=== PATIENT | female | born 1955 | race Two or more races ===

== ENCOUNTER 2024-06-28 20:18 | Inpatient (IN) | payer MEDICARE, SELFPAY ==
[2024-06-28 20:20] VITALS: BMI 35.4
[2024-06-28 20:25] VITALS: BP 220/84; PULSE 89; RESP 32; TEMP 37.2; O2SAT 83
--- NOTE | 2024-06-28 20:28 | PC.NURSE ---
TRIAGE NURSE INFORMED CHARGE NURSE RENATO OF PT'S VITALS AND REQUESTED FOR A ROOM. CURRENTLY WAITING FOR A ROOM AT THIS TIME.
--- NOTE | 2024-06-28 20:44 | PD.EDRME ---
Rapid Medical Screening Exam RME Arrival date/time: 06/28/24 20:18 69 yo f present to ED for c/o sob for 3 days I have greeted and performed a focused initial assessment of this patient. A comprehensive ED assessment and evaluation of the patient, analysis of all test results, and completion of the medical decision making process will be conducted by additional ED providers. Chief Complaint: Shortness of Breath/Dyspnea Time Seen by Provider: 06/28/24 20:23 Vital signs: Vital Signs Temperature 99.0 F 06/28/24 20:25 Pulse Rate 89 06/28/24 20:25 Respiratory Rate 32 H 06/28/24 20:25 Blood Pressure 220/84 H 06/28/24 20:25 Pulse Oximetry (%) 83 L 06/28/24 20:25 Oxygen Delivery Method Room Air 06/28/24 20:25
--- NOTE | 2024-06-28 20:45 | EKG_ITS ---
[facility] Test Date: 2024-06-28 Pat Name: TREVIN LEONE Department: Room: - Gender: Female Psychology Associate: : 1955 Requested By: Robby Bell Order Number: [id number] Reading MD: Robby Bell Measurements Intervals [place] Rate: 80 P: 57 TX: 190 QRS: -6 QRSD: 88 T: 104 QT: 381 QTc: 440 Interpretive Statements SINUS RHYTHM POSSIBLE LEFT ATRIAL ENLARGEMENT [-0.1mV P-WAVE IN V1/V2] LOW QRS VOLTAGE IN PRECORDIAL LEADS [QRS DEFLECTION < 1.0 mV IN CHEST LEADS] NONSPECIFIC T-WAVE ABNORMALITY Compared to ECG 07/25/2023 19:43:23 Low QRS voltage now present Possible ischemia no longer present T-wave abnormality still present /store/S0/[id number]/ecg/[id number].pdf
--- NOTE | 2024-06-28 20:45 | XR_ITS ---
Examination: PA lateral chest 2 views Technique: Upright PA lateral chest 2 views Exam date and time: June 28, 2024 at 2050 hrs. Indications: Septic arthritis of breath today. Findings: Prominent CHF Moderate enlargement cardiac contour with prominent vascular congestion including central vascular engorgement Bibasilar pneumonia The osseous structures are intact Impression: Prominent CHF Superimposed bibasilar pneumonia
[2024-06-28 21:15] LABS: Base Excess -5 (-3-3); HCO3 20 mEq/L (20-26); Inspired Oxygen, FIO2 46 %; O2 Saturation 97 % (91-98); PCO2 37 mmHg (32.0-48.0); PO2 85 mmHg (83-108); pH, Arterial 7.35 (7.35-7.45)
[2024-06-28 21:16] LABS: Allen Test Performed/OK; Puncture Site Right Radial
[2024-06-28 21:20] VITALS: BP 178/88; PULSE 68; RESP 18; O2SAT 96
--- NOTE | 2024-06-28 21:24 | PD.EDSOB ---
ED SOB =RME/HPI General Chief Complaint: Shortness of Breath/Dyspnea Stated Complaint: SOB Time Seen by Provider: 06/28/24 20:23 Source: patient and family Arrival date/time: 06/28/24 20:18 Mode of arrival: ambulatory Limitations: no limitations RME / HPI RME / HPI Narrative: 06/28/24 20:18 69 yo f present to ED for c/o sob for 3 days I have greeted and performed a focused initial assessment of this patient. A comprehensive ED assessment and evaluation of the patient, analysis of all test results, and completion of the medical decision making process will be conducted by additional ED providers. DR. MARINA MAIN ED EVALUATION: 69-year-old female with a past medical history of congestive heart failure (CHF) and kidney disease presents to the Emergency Department with complaints of shortness of breath and cough with greenish brown sputum. The patient describes the symptoms as moderate in severity. Upon assessment, she is noted to be hypoxic with an oxygen saturation of 83% on room air. Associated symptoms include a fever and a productive, moist cough. The patient has not reported any recent changes in her condition, but denies chest pain, wheezing, or hemoptysis. Related Data Home Medications ?Medication ?Instructions ?Recorded ?Confirmed atorvastatin 80 mg tablet 80 mg PO QDAY 03/10/22 07/26/23 carvedilol 25 mg tablet 25 mg PO BID 03/10/22 07/26/23 doxazosin 2 mg tablet 2 mg PO QPM 04/07/23 07/26/23 clopidogrel 75 mg tablet 75 mg PO DAILY 06/28/23 07/26/23 ezetimibe 10 mg tablet 10 mg PO QPM 06/28/23 07/26/23 hydralazine 50 mg tablet 75 mg PO TID 06/28/23 07/26/23 pregabalin 75 mg capsule 75 mg PO QPM 06/28/23 07/26/23 ferrous sulfate 325 mg (65 mg 325 mg PO QDAY 07/26/23 07/26/23 iron) tablet isosorbide mononitrate 30 mg 30 mg PO DAILY 07/26/23 07/26/23 tablet,extended release 24 hr semaglutide 3 mg tablet (Rybelsus) 3 mg PO QDAY 07/26/23 07/26/23 Previous Rx's ?Medication ?Instructions ?Recorded amoxicillin 875 mg tablet 875 mg PO BID #7 tabs 07/28/23 furosemide 40 mg tablet (Lasix) 40 mg PO Q OTHER DAY 30 days #15 07/28/23 tabs albuterol sulfate 0.63 mg/3 mL 0.63 mg (3 mL) inhalation QID PRN 07/29/23 solution for nebulization shortness of breath or wheezing #75 mL albuterol sulfate 90 mcg/actuation 1 inh inhalation QID PRN shortness 07/29/23 aerosol inhaler of breath or wheezing #6.7 grams guaifenesin 100 mg/5 mL oral liquid 200 mg (10 mL) PO Q4H PRN 07/29/23 congestion #473 mL Allergies Allergy/AdvReac Type Severity Reaction Status Date / Time lisinopril Allergy Severe Difficulty Verified 06/28/24 20:22 Breathing prednisone Allergy Severe Hypertensio Verified 06/28/24 20:22 n Review of Systems Review of Systems Systems Reviewed: All systems reviewed, normal except as documented Past Medical History Past Medical History NEUROLOGIC: Positive Neurological Disorders and Cerebrovascular Accident (left side slight weakness- 11/2019); Negative Transient Ischemic Attacks (TIA) or Seizures CARDIAC: Positive Cardiac Disorders, Hypercholesterolemia, Congestive Heart Failure and Hypertension; Negative Hypotension RESPIRATORY: Positive Pneumonia (06/2023); Negative Chronic Obstructive Pulmonary Disease (COPD), Asthma or Sleep Apnea GASTROINTESTINAL: Negative Gastrointestinal Disorders, Hepatitis, Cirrhosis or Gastrointestinal Bleed GENITOURINARY: Negative Genitourinary Disorders or Renal Disease MUSCULOSKELETAL: Positive Musculoskeletal Disorders; Negative Marfan's Syndrome, Bone Cancer or Scoliosis ENT: Negative Blind or Deafness ENDOCRINE: Positive Endocrine Disorders, Diabetes Mellitus Type 2 and Hypothyroidism (not on meds); Negative Diabetes Mellitus Type 1 HEMATOLOGIC: Positive Anemia; Negative Leukemia PSYCHO/SOCIAL: Negative Recreational Drug Use OTHER HISTORY: Positive Hospitalization (qmonth for the last 4 months); Negative Down Syndrome, Developmental Delay, Falls, Blood Transfusions, Anesthesia Reactions or Vancomycin-Resistant Enterococci Surgical History SURGICAL: Positive Endocrine Surgery (thyroid nodule removed) and Section (x1); Negative Cardiac Surgery Social History SMOKING STATUS: Never smoker SECOND HAND EXPOSURE: No SUBSTANCE USE: does not use ALCOHOL: Never ED Exam Narrative Physical exam: GENERAL APPEARANCE: alert and oriented x 4, well-developed, well-nourished,not in respiratory distress, moderate pallor VITALS: All vitals were reviewed and the pulse ox is 83% on room air, which is hypoxic according to my interpretation. HEENT: Normocephalic, atraumatic; pupils equal, round, reactive to light; EOMI; mucous membranes pink, moist; oropharynx clear NECK: Supple LUNGS: CTABL; no wheezes, no rales, no rhonchi HEART: Regular rate, regular rhythm; normal S1, S2; no murmurs ABDOMEN: non distended; normal BS; soft, no tenderness, no guarding, no rebound; no masses, no organomegaly, no hernia BACK: no CVA tenderness EXTREMITIES: atraumatic; no edema NEUROLOGIC: awake; alert and oriented x4; cranial nerves II-XII grossly intact; no focal sensory or motor deficits PSYCHIATRIC: appropriate mood and affect SKIN: warm, dry, moderate pallor; no rashes General Limitations: Present no limitations Course Course Course Narrative: CXR is ordered for determining etiology of shortness of breath. Quality Measures none Orders Category Date Time Status Bedside COVID-19 Antigen Test NOW Care 06/28/24 20:45 Active Bedside Influenza A&B Antigen Test NOW Care 06/28/24 20:46 Completed COVID-19 Screening Questionnaire NOW Care 06/29/24 02:58 Active Tactical/Mobile Watch Officer STAT Care 06/28/24 20:45 Active Continuous Pulse Oximetry STAT Care 06/28/24 20:45 Completed Decision to Admit X1 Care 06/29/24 02:58 Completed EKG (ED ONLY) *Do not use* NOW Care 06/28/24 20:45 Completed In and Out Catheter X1PRN Care 06/28/24 20:45 Active Insert IV NOW Care 06/28/24 20:45 Active NPO STAT Care 06/28/24 20:45 Active Strict Intake and Output Routine Care 06/28/24 20:45 Ordered EKG (ED Only) Stat Exams 06/28/24 20:45 Draft XR chest 2V Stat Exams 06/28/24 20:45 Completed Arterial Blood Gas Stat Lab 06/28/24 21:07 Completed B-Type Natriuretic Peptide Stat Lab 06/28/24 21:42 Completed Blood Culture (Lab) Stat Lab 06/28/24 21:47 Received CBC Stat Lab 06/28/24 21:42 Completed Comprehensive Metabolic Panel Stat Lab 06/28/24 21:42 Completed LDH (Lactate Dehydrogenase) Stat Lab 06/28/24 21:42 Completed Lactate (Lactic Acid) Stat Lab 06/28/24 21:42 Completed Lipase Stat Lab 06/28/24 21:42 Completed Magnesium Stat Lab 06/28/24 21:42 Completed Partial Thromboplastin Time Stat Lab 06/28/24 21:42 Completed Phosphorous Stat Lab 06/28/24 21:42 Completed Procalcitonin Stat Lab 06/28/24 21:42 Completed Prothrombin Time with INR Stat Lab 06/28/24 21:42 Completed Troponin I Stat Lab 06/28/24 21:42 Completed Urinalysis Stat Lab 06/29/24 00:10 Completed Urine Culture Stat Lab 06/29/24 00:10 Received Azithromycin Inj [Zithromax Inj] 500 mg Med 06/29/24 02:55 Discontinued Sodium Chloride 0.9% 250 ml [Ns] 250 ml IV X1 [id number] [Rocephin] 1,000 mg Med 06/29/24 02:55 Discontinued Sodium Chloride 0.9% [Ns] 50 ml IV X1 Oxygen Delivery NOW RT 06/28/24 20:45 Active Vital Signs Vital signs: Vital Signs Temperature 99.0 F 06/28/24 20:25 Pulse Rate 89 06/28/24 20:25 Respiratory Rate 32 H 06/28/24 20:25 Blood Pressure 220/84 H 06/28/24 20:25 Pulse Oximetry (%) 83 L 06/28/24 20:25 Oxygen Delivery Method Room Air 06/28/24 20:25 Shortness of Breath / Dyspnea MDM Narrative MDM Narrative:: ICinthia am scribing for and in the presence of Dr. Marina. Patient data External records reviewed:: [facility] previous records (Reviewed last admission discharge dated 07/29/23, patient admitted for the following: Chronic kidney insufficiency.) Clinical information provided by:: patient Social determinants that could affect healthcare access:: none Patient has the following chronic illnesses:: CHF and kidney disease How is presenting disease/condition affected by chronic disease/condition?: exacerbated by Evaluation data The following diagnostics were reviewed and interpreted by me:: lab results, radiology exam(s) and EKG tracing(s) (sinus rhythm, rate 80, low QRS voltage in precordial leads, QTc 440) Lab and/or radiology exams considered but not ordered:: none Interpretation Summary: I personally reviewed the radiology data and agree with the radiologist's interpretation. Examination: PA lateral chest 2 views Technique: Upright PA lateral chest 2 views Exam date and time: June 28, 2024 at 2050 hrs. Indications: Septic arthritis of breath today. Findings: Prominent CHF Moderate enlargement cardiac contour with prominent vascular congestion including central vascular engorgement Bibasilar pneumonia The osseous structures are intact Impression: Prominent CHF Superimposed bibasilar pneumonia Dictated By: Morro Farah MD Medications / Prescriptions Medications or Prescriptions considered but not ordered:: none Medication administrations:: Medication Administration History Acetaminophen (Acetaminophen 325 Mg Tablet) 650 mg PO Q6H PRN PRN Reason: Fever >100.4 or Pain 1-10 Stop: 07/29/24 03:29 Albuterol/Ipratropium (Albuterol/Ipratropium (Duoneb) Rt Usha 3 Ml Nebu) 3 ml INH Q6HRRT MARNIE Stop: 07/29/24 06:59 Atorvastatin Calcium (Atorvastatin Calcium 20 Mg Tablet) 80 mg PO HS MARNIE Stop: 07/29/24 20:59 Bisacodyl (Bisacodyl 5 Mg Tabec) 10 mg PO QDAY PRN; Protocol PRN Reason: CONSTIPATION Stop: 07/29/24 03:29 Bumetanide (Bumetanide Inj 0.25 Mg/Ml Vial 4 Ml) 2 mg IVP DAILY MARNIE Stop: 07/29/24 04:49 Clopidogrel Bisulfate (Clopidogrel Bisulfate 75 Mg Tablet) 75 mg PO QDAY MARNIE Stop: 07/29/24 08:59 Ezetimibe (Ezetimibe 10 Mg Tablet) 10 mg PO QDAY MARNIE Stop: 07/29/24 08:59 Heparin Sodium (Porcine) (Heparin Sod Inj 5000 Unit/Ml Vial) 5,000 unit SC Q12HR MARNIE Stop: 07/13/24 08:59 Ceftriaxone Sodium/Dextrose (Rocephin/D5w 1gm Iv Premix) 50 mls @ 100 mls/hr IV QDAY@2100 MARNIE Stop: 07/06/24 20:59 Azithromycin 500 mg/ Sodium (Chloride) 250 mls @ 250 mls/hr IV QDAY MARNIE Stop: 07/03/24 03:35 Isosorbide Mononitrate (Isosorbide Er Mononitrate 30 Mg Tabcr) 30 mg PO QDAY MARNIE Stop: 07/29/24 08:59 Losartan Potassium (Losartan Potassium 25 Mg Tablet) 25 mg PO QDAY [facility] Stop: 07/29/24 08:59 Ondansetron HCl (Ondansetron Inj 2 Mg/Ml Inj 2 Ml) 4 mg IV Q6H PRN; Protocol PRN Reason: NAUSEA OR VOMITING Stop: 07/29/24 03:29 Pregabalin (Pregabalin 75 Mg Capsule) 75 mg PO QDAY [facility] Stop: 07/29/24 08:59 Discontinued Medications Bumetanide (Bumetanide 0.5 Mg Tablet) 2 mg PO Q48H [facility] Stop: 07/29/24 08:59 Bumetanide (Bumetanide 0.5 Mg Tablet) 2 mg PO DAILY [facility] Stop: 07/29/24 08:59 Carvedilol (Carvedilol 12.5 Mg Tablet) 12.5 mg PO BIDWM [facility] Stop: 07/29/24 07:59 Azithromycin 500 mg/ Sodium (Chloride) 250 mls @ 250 mls/hr IV X1 ONE Stop: 06/29/24 03:54 Last Admin: 06/29/24 04:30 Dose: 250 mls/hr Documented By: LB Ceftriaxone Sodium 1,000 mg/ (Sodium Chloride) 50 mls @ 100 mls/hr IV X1 ONE Stop: 06/29/24 03:24 Last Admin: 06/29/24 03:31 Dose: 100 mls/hr Documented By: LB Isosorbide Mononitrate (Isosorbide Er Mononitrate 30 Mg Tabcr) 60 mg PO QDAY [facility] Stop: 07/29/24 08:59 Sodium Chloride (Sodium Chloride Rt 10% 15 Ml Nebu) 5 ml INH X1 ONE Stop: 06/29/24 03:37 see above if any Consultations Consultation(s) initiated? (list below): Yes Consultation #1 (Physician, Specialty, Details): Hospitalist made aware of the patient?s HPI, PMHx, lab and/or radiology results. Treatment plan was discussed. Accepts patient for admission. Diagnosis Shortness of Breath Differential Diagnosis: congestive heart failure, community acquired pneumonia and pulmonary embolism Most likely diagnosis given after review of the tests above:: See clinical impression below Admission Indicated Admission indicated?: indicated Admission Request Was there a request for admission?: Yes Admission Attestation Admission request attestation: Discussed case with [] from Hospitalist service regarding admission. Discussed patients ED course, exam findings, labs, and radiology results. The Hospitalist [agrees,declines] to accept the patient for admission. Disposition Plan Disposition Plan: Admit Discharge Plan Plan Patient Disposition: Admit Acute Care w/in Hospital Disposition Comment: Dr. Kendall Problem List Clinical Impression: Pneumonia, Hypoxia
[2024-06-28 21:58] LABS: Lactate (Lactic Acid) 0.5 mMol/L (0.4-2.0)
[2024-06-28 22:01] LABS: Basophils % (Auto) 1 % (0-2.5); Eosinophils # (Auto) 0.2 Thou/mm3 (0.0-0.5); Eosinophils % (Auto) 2 % (0-10); Hematocrit 24.9 % (36.0-46.0); Immature Granulocytes % (Auto) 1 % (0-0); Immature Granulocytes Auto 0.11 Thou/mm3 (0.00-0.00); Lymphocytes # (Auto) 0.8 Thou/mm3 (1.0-4.8); Lymphocytes % (Auto) 9 % (10-50); Mean Corpuscular HGB Conc 32.5 g/dl (31.0-37.0); Mean Corpuscular Hemoglobin 27.6 pg (25.0-35.0); Mean Corpuscular Volume 85 fL (80-100); Monocytes # (Auto) 0.7 Thou/mm3 (0.0-0.8); Monocytes % (Auto) 8 % (0-12); Neutrophils # (Auto) 6.9 Thou/mm3 (1.8-7.7); Neutrophils % (Auto) 79 % (37-80); Nucleated Red Blood Cell % 0 /100 WBC (0); Platelet Count 193 Thou/mm3 (140-440); RDW Standard Deviation 39.6 fL (36.4-46.3); Red Blood Count 2.94 Miln/mm3 (4.00-5.20); White Blood Count 8.7 Thou/mm3 (3.6-11.0)
[2024-06-28 22:15] LABS: Hemoglobin 8.1 g/dL (12.0-16.0)
[2024-06-28 22:20] LABS: Prothrombin Time 11.2 Seconds (9.0-12.2)
[2024-06-28 22:30] LABS: Alanine Aminotransferase 10 U/L (10-49); Albumin, Serum 4.2 gm/dL (3.4-4.8); Albumin/Globulin Ratio 1.4 (1.2-2.2); Alkaline Phosphatase 61 U/L (46-116); Anion Gap 10 (7-16); Aspartate Amino Transferase 13 U/L (0-34); BUN/Creatinine Ratio 18 Ratio (12-20); Bilirubin,Total 0.3 mg/dL (0.3-1.2); Blood Urea Nitrogen 36 mg/dL (9-23); Calcium 8.7 mg/dL (8.3-10.6); Calcium (Corrected) 8.7 mg/dL (8.5-10.1); Carbon Dioxide 20.3 mMol/L (20.0-31.0); Chloride 108 mMol/L (98-107); Globulin 2.9 gm/dL (2.3-3.5); Glucose 143 mg/dL (74-106); LDH (Lactate Dehydrogenase) 255 U/L (120-246); Lipase 37 U/L (12-53); Osmolality,Calculated 285 (275-295); Phosphorous 4.6 mg/dL (2.4-5.1); Potassium 4.6 mMol/L (3.4-5.1); Procalcitonin 0.13 ng/ml (0.0-0.49); Sodium 138 mMol/L (136-145); Total Protein 7.1 gm/dL (5.7-8.2); Troponin I < 0.020 ng/mL (0.0-0.045); eGFR 26 See Note
[2024-06-28 22:34] LABS: B-Type Natriuretic Peptide 372 pg/mL (0-100)
[2024-06-28 23:00] VITALS: BP 180/90; PULSE 62; RESP 20; TEMP 37.2; O2SAT 96
[2024-06-29] VITALS (22 sets, daily range): BP systolic 146–188; BP diastolic 61–91; PULSE 63–98; RESP 16–21; TEMP 36.7–37.4; O2SAT 93–100; BMI 30.8
[2024-06-29 00:42] LABS: Collection Type, Urine Clean Catch
[2024-06-29 00:53] LABS: Bilirubin,Urine Negative (Negative); Blood,Urine Negative (Negative); Clarity,Urine Clear (Clear/Hazy); Color,Urine Colorless (Lt Yel-Yel); Glucose, Urine Negative (Negative); Ketones,Urine Negative (Negative); Leukocyte Esterase,Urine Negative (Negative); Nitrite,Urine Negative (Negative); Protein,Urine 1+ (Neg - Trace); RBC,Urine 2 /hpf (0-3); Specific Gravity,Urine 1.009 (1.001-1.035); Squamous Epithelial Cell,Urine < 1 /hpf (0-5); Urobilinogen,Urine Negative mg/dL (0.0-1.0); WBC,Urine < 1 /hpf (0-5)
--- NOTE | 2024-06-29 03:09 | PC.NURSE ---
O2 sats drop down to 88% on RA. HBS in room seeing pt. Dtr at bedside.
--- NOTE | 2024-06-29 03:58 | PD.RESHP ---
Documentation for date of: 06/29/24 HPI History of Present Illness Chief complaint: Cough, SOB x 3 days History of present illness: Patient is a 69-year-old Kazakh-speaking female with past medical history of HFpEF (50-55% 06/28/2023), CKD stage III, hypertension, DM2, CVA in 2019 without residual deficits, and hyperlipidemia who presented to the ED on 06/28/2024 with 3 days of cough and shortness of breath which worsened today, prompting ED visit. On arrival patient had O2 saturations in the low 80s therefore was placed on 6L in triage with improvement to 97%. Daughter is present at the bedside to assist with translating. She states that patient has had previous hospitalizations for pneumonia, usually occurring in the winter months. She is unsure of whether patient got a pneumovax. Patient follows with PCP Dr. Mitchell. Patient endorses productive cough with brownish sputum, fevers, and chest discomfort. She denies any nausea, vomiting, abdominal pain, diarrhea, dysuria. Denies myalgias, sore throat. Denies any recent known sick contacts or travel. ED Course: -Initial vitals were BP 220/84, HR 89, RR 32, Temp 99.0, O2 83% on room air -Labs significant for normocytic anemia which is approximately at baseline, creatinine 2.0 according to baseline, negative troponin and procalcitonin -CXR revealed bibasilar pneumonia -In the ED, patient was given ceftriaxone 1 g IV x1, azithromycin 500 mg IV x1. -Patient was admitted for acute hypoxic respiratory failure secondary to community acquired pneumonia Review of Systems Review of systems otherwise negative except what is mentioned above. Past Medical History Past Medical History Comments PMH COMMENT: Past Medical History: HFpEF (50-55% 06/28/2023), CKD stage III, hypertension, DM2, CVA in 2020 without residual deficits, and hyperlipidemia Family History: Known for history of diabetes and heart disease in multiple family members Surgical History: Social History: Denies history of smoking, denies current alcohol use, denies recreational drug use Current Medications: Bumex 2 mg every other day, isosorbide mononitrate 60 mg qday, clopidogrel 75 mg qday, atorvastatin 80 mg qday, ezetimibe 10 mg qday, pregabalin 75 mg qday, carvedilol BID, hydralazine 100 mg TID, amlodipine qday, losartan qday, Ozempic (Source: Patient medication list per daughter) Allergies: No known drug allergies Exam Vital Signs Temp Pulse Resp BP Pulse Ox O2 Del Method O2 Flow Rate 99 F 68 18 154/71 H 95 Nasal Cannula 3 06/29/24 03:00 06/29/24 03:00 06/29/24 03:00 06/29/24 03:00 06/29/24 03:00 06/29/24 03:00 06/29/24 03:00 Narrative Exam Physical Exam General: Awake and in no acute distress. Conversational and non-toxic appearing. HEENT: Normocephalic, atraumatic, mucous membranes moist. Saturating low 90s on 2L NC. Heart: Regular rate and rhythm, no murmurs. Lungs: Mild bilateral lower base crackles. Abdomen: Soft, nondistended, nontender, positive bowel sounds. ?No guarding or rebound tenderness. Neurologic: Alert and oriented x3, no gross neurological deficit, and patient able to move all 4 extremities. Extremities: No edema. Skin: No rash or ecchymoses. Results: Labs 06/29/24 05:22 06/29/24 05:22 Labs: Short CBC 06/28/24 Range/Units 21:42 WBC 8.7 (3.6-11.0) Thou/mm3 Hgb 8.1 L (12.0-16.0) g/dL Hct 24.9 L (36.0-46.0) % Plt Count 193 (140-440) Thou/mm3 BMP 06/28/24 21:42 Sodium 138 Potassium 4.6 Chloride 108 H Carbon Dioxide 20.3 BUN 36 H Creatinine 2.0 H Glucose 143 H Calcium 8.7 Cardiac Enzymes 06/28/24 Range/Units 21:42 Troponin I < 0.020 (0.0-0.045) ng/mL Liver Function 06/28/24 Range/Units 21:42 Total Bilirubin 0.3 (0.3-1.2) mg/dL AST 13 (0-34) U/L ALT 10 (10-49) U/L Alkaline Phosphatase 61 (46-116) U/L Albumin 4.2 (3.4-4.8) gm/dL Urine 01/26/25 Range/Units 00:10 Urine Color Colorless A (Lt Yel-Yel) Urine Clarity Clear (Clear/Hazy) Urine pH 6.0 (5.0-7.0) Ur Specific [place] 1.009 (1.001-1.035) Urine Protein 1+ A (Neg - Trace) Urine Glucose (UA) Negative (Negative) ABG Interpretation ABG results: 06/28/24 21:07 ABG pH 7.35 ABG pCO2 37 ABG pO2 85 ABG HCO3 20 ABG O2 Saturation 97 ABG Base Excess -5 L Quality Measures Quality Measures none Advance care planning discussed with:: patient and child Medications Home Medications and Allergies Home Medications ?Medication ?Instructions ?Recorded ?Confirmed ?Type atorvastatin 80 mg tablet 80 mg PO QDAY 03/10/22 07/26/23 History carvedilol 25 mg tablet 25 mg PO BID 03/10/22 07/26/23 History doxazosin 2 mg tablet 2 mg PO QPM 04/07/23 07/26/23 History clopidogrel 75 mg tablet 75 mg PO DAILY 06/28/23 07/26/23 History ezetimibe 10 mg tablet 10 mg PO QPM 06/28/23 07/26/23 History hydralazine 50 mg tablet 75 mg PO TID 06/28/23 07/26/23 History pregabalin 75 mg capsule 75 mg PO QPM 06/28/23 07/26/23 History ferrous sulfate 325 mg (65 mg 325 mg PO QDAY 07/26/23 07/26/23 History iron) tablet isosorbide mononitrate 30 mg 30 mg PO DAILY 07/26/23 07/26/23 History tablet,extended release 24 hr semaglutide 3 mg tablet (Rybelsus) 3 mg PO QDAY 07/26/23 07/26/23 History Allergies Allergy/AdvReac Type Severity Reaction Status Date / Time lisinopril Allergy Severe Difficulty Verified 06/28/24 20:22 Breathing prednisone Allergy Severe Hypertensio Verified 06/28/24 20:22 n Visit Medications Acetaminophen (Acetaminophen 325 Mg Tablet) 650 mg PO Q6H PRN PRN Reason: Fever >100.4 or Pain 1-10 Stop: 07/29/24 03:29 Albuterol/Ipratropium (Albuterol/Ipratropium (Duoneb) Rt Usha 3 Ml Nebu) 3 ml INH Q6HRRT MARNIE Stop: 07/29/24 06:59 Atorvastatin Calcium (Atorvastatin Calcium 20 Mg Tablet) 80 mg PO HS MARNIE Stop: 07/29/24 20:59 Bisacodyl (Bisacodyl 5 Mg Tabec) 10 mg PO QDAY PRN; Protocol PRN Reason: CONSTIPATION Stop: 07/29/24 03:29 Bumetanide (Bumetanide 0.5 Mg Tablet) 2 mg PO Q48H MARNIE Stop: 07/29/24 08:59 Clopidogrel Bisulfate (Clopidogrel Bisulfate 75 Mg Tablet) 75 mg PO QDAY MARNIE Stop: 07/29/24 08:59 Ezetimibe (Ezetimibe 10 Mg Tablet) 10 mg PO QDAY COUNT INCLUDES THE [facility] Stop: 07/29/24 08:59 Heparin Sodium (Porcine) (Heparin Sod Inj 5000 Unit/Ml Vial) 5,000 unit SC Q12HR MARNIE Stop: 07/13/24 08:59 Ceftriaxone Sodium/Dextrose (Rocephin/D5w 1gm Iv Premix) 50 mls @ 100 mls/hr IV QDAY MARNIE Stop: 07/06/24 03:34 Azithromycin 500 mg/ Sodium (Chloride) 250 mls @ 250 mls/hr IV QDAY MARNIE Stop: 07/03/24 03:35 Isosorbide Mononitrate (Isosorbide Er Mononitrate 30 Mg Tabcr) 30 mg PO QDAY COUNT INCLUDES THE [facility] Stop: 07/29/24 08:59 Ondansetron HCl (Ondansetron Inj 2 Mg/Ml Inj 2 Ml) 4 mg IV Q6H PRN; Protocol PRN Reason: NAUSEA OR VOMITING Stop: 07/29/24 03:29 Pregabalin (Pregabalin 75 Mg Capsule) 75 mg PO QDAY COUNT INCLUDES THE [facility] Stop: 07/29/24 08:59 Discontinued Medications Carvedilol (Carvedilol 12.5 Mg Tablet) 12.5 mg PO BIDWM MARNIE Stop: 07/29/24 07:59 Azithromycin 500 mg/ Sodium (Chloride) 250 mls @ 250 mls/hr IV X1 ONE Stop: 06/29/24 03:54 Ceftriaxone Sodium 1,000 mg/ (Sodium Chloride) 50 mls @ 100 mls/hr IV X1 ONE Stop: 06/29/24 03:24 Last Admin: 06/29/24 03:31 Dose: 100 mls/hr Isosorbide Mononitrate (Isosorbide Er Mononitrate 30 Mg Tabcr) 60 mg PO QDAY MARNIE Stop: 07/29/24 08:59 Sodium Chloride (Sodium Chloride Rt 10% 15 Ml Nebu) 5 ml INH X1 ONE Stop: 06/29/24 03:37 Assessment & Plan Plan 69-year-old Kazakh-speaking female with past medical history of HFpEF (50-55% 06/28/2023), CKD stage III, hypertension, DM2, CVA in 2019 without residual deficits, and hyperlipidemia who presented to the ED on 06/28/2024 with 3 days of productive cough with brown sputum and shortness of breath with associated fever, chest discomfort, found to have bilateral pneumonia and admitted for acute hypoxic respiratory failure. #Acute hypoxic respiratory failure, secondary to #Bilateral community-acquired pneumonia On initial evaluation, did not meet sepsis criteria however patient was hypoxic to 80s on room air and tachypneic, required 4L. Denies history of O2 use at home, asthma, COPD. CXR showing bilateral lower lobe infiltrate. Procal was negative. COVID, flu were negative. CURB-65 score is 3 points, severe risk group: 14.0% 30-day mortality. Consider inpatient treatment. -Started ceftriaxone 1 g IV qday -Started azithromycin 500 mg qday -DuoNebs q6h -Blood cultures pending -Sputum culture ordered -Cocci ordered -RSV ordered -Chest physiotherapy -Titrate oxygen as tolerated to maintain saturations >93% #History of hypertension BP elevated on arrival, 220/84, patient on a number of home antihypertensives. Did not receive any antihypertensive in ED but BP improved to 146/63. -In setting of acute illness will slowly resume home medications -Continue home isosorbide mononitrate 30 mg qday -Continue home losartan 25 mg qday -Continue home bumex 2 mg #History of type 2 diabetes On admission initial glucose 116. Last A1c 6.8 04/2023. Patient takes Ozempic for diabetes at home. Not on insulin. -Held home medications -Monitor glucose on chem panel -Carb consistent low diet -A1c pending #History of HFpEF (50-55% 06/28/2023) Patient does have bilateral crackles. BNP similar to prior levels. According to patient med list per daughter, she takes bumex 2 mg every other day. -Careful with fluid resuscitation -Strict intake and output -Resume home bumex #History of CVA in 2019 without residual deficit -Continue home clopidogrel 75 mg qday #History of hyperlipidemia -Continue home atorvastatin 80 mg HS -Continue home ezetimibe 10 mg qday #History of CKD III Creatinine appears at baseline. -Monitor kidney function DVT prophylaxis: Heparin 5,000 U subQ GI prophylaxis: Pantoprazole 40 mg IV daily Diet: Cardiac, carb consistent low [place]: None Lines: Peripheral IV Antibiotics: Ceftriaxone [06/29- ], azithromycin [06/29- ] CODE STATUS: FULL Reason for hospitalization: Patient plan of care was discussed with the attending physician, Dr. Kendall. Treausre Gaspar, PGY-2
[2024-06-29] MEDS: AZITHROMYCIN INJ 500 MG in SODIUM CHLORIDE 0.9% 250 ML 250 ML 250 MG IV (04:30)
[2024-06-29 05:16] LABS: Respiratory Syncytial Virus Ag Negative (Negative)
[2024-06-29 05:54] LABS: Basophils % (Auto) 0 % (0-2.5); Eosinophils # (Auto) 0.2 Thou/mm3 (0.0-0.5); Eosinophils % (Auto) 2 % (0-10); Hematocrit 24.7 % (36.0-46.0); Immature Granulocytes % (Auto) 1 % (0-0); Immature Granulocytes Auto 0.05 Thou/mm3 (0.00-0.00); Lymphocytes # (Auto) 1.1 Thou/mm3 (1.0-4.8); Lymphocytes % (Auto) 14 % (10-50); Mean Corpuscular HGB Conc 31.6 g/dl (31.0-37.0); Mean Corpuscular Hemoglobin 27.6 pg (25.0-35.0); Mean Corpuscular Volume 87 fL (80-100); Monocytes # (Auto) 0.7 Thou/mm3 (0.0-0.8); Monocytes % (Auto) 10 % (0-12); Neutrophils # (Auto) 5.5 Thou/mm3 (1.8-7.7); Neutrophils % (Auto) 73 % (37-80); Nucleated Red Blood Cell % 0 /100 WBC (0); Platelet Count 194 Thou/mm3 (140-440); RDW Standard Deviation 41.5 fL (36.4-46.3); Red Blood Count 2.83 Miln/mm3 (4.00-5.20); White Blood Count 7.5 Thou/mm3 (3.6-11.0)
[2024-06-29 05:56] LABS: Hemoglobin 7.8 g/dL (12.0-16.0)
[2024-06-29] MEDS: ALBUTEROL/IPRATROPIUM (Duoneb) RT SOL 3 ML NEBU INH ×2 (06:15→12:03)
[2024-06-29] MEDS: BUMETANIDE INJ 0.25 MG/ML VIAL 4 ML 2 MG IVP (06:21)
[2024-06-29 06:29] LABS: Anion Gap 9 (7-16); BUN/Creatinine Ratio 17 Ratio (12-20); Blood Urea Nitrogen 33 mg/dL (9-23); Calcium 8.9 mg/dL (8.3-10.6); Chloride 110 mMol/L (98-107); Glucose 116 mg/dL (74-106); Osmolality,Calculated 285 (275-295); Phosphorous 4.9 mg/dL (2.4-5.1); Potassium 4.4 mMol/L (3.4-5.1); Sodium 139 mMol/L (136-145); eGFR 26 See Note
[2024-06-29] MEDS: PREGABALIN 75 MG CAPSULE PO (09:02)
[2024-06-29] MEDS: LOSARTAN POTASSIUM 25 MG TABLET PO (09:02)
[2024-06-29] MEDS: CLOPIDOGREL BISULFATE 75 MG TABLET PO (09:03)
[2024-06-29] MEDS: EZETIMIBE 10 MG TABLET PO (10:00)
[2024-06-29] MEDS: ISOSORBIDE ER MONONITRATE 30 MG TABCR PO (10:00)
[2024-06-29] MEDS: BUMETANIDE INJ 0.25 MG/ML VIAL 10 ML 2 MG IVP (10:01)
--- NOTE | 2024-06-29 10:53 | PC.NURSE ---
plan of care discussed with patient and her daughter who is an RN at [facility]. Patient states she is feeling better and her breathing is also better.
--- NOTE | 2024-06-29 12:39 | PC.NURSE ---
MD notified patient's BP is 182/91. Awaiting orders.
[2024-06-29] MEDS: hydrALAZINE HCL 25 MG TABLET PO (12:45)
--- NOTE | 2024-06-29 12:53 | ESPR_ITS ---
Documentation for date of: 06/29/24 Subjective Subjective Interval history: Patient was seen at bedside this morning. No overnight events. Patient was saturating well this morning on room air maintaining 93% O2 saturation. Patient's daughter was at bedside and stated that she was to know if patient could be discharged today as her hypoxia had resolved. At this time was explained to her that the patient was still pending blood and sputum cultures and patient will said that she would like to remain in the hospital overnight therefore will continue to monitor the patient overnight. No other complaints at this time. Exam Vital Signs Temp Pulse Resp BP Pulse Ox O2 Del Method O2 Flow Rate 98.1 F 72 17 182/91 H 99 Nasal Cannula 2 06/29/24 09:05 06/29/24 12:45 06/29/24 12:31 06/29/24 12:45 06/29/24 12:31 06/29/24 12:31 06/29/24 12:31 Narrative Exam General: A/O x3, no acute distress, well-nourished, well-developed Eyes: PERRL, EOMI. Anicteric, vision grossly intact. Ears: No ear pain, no ear discharge, Hearing grossly intact. Nose: No nasal discharge. Mouth/Throat: Moist mucous membranes, no redness, no lesions. Neck: Neck supple, non-tender, no cervical lymphadenopathy. Lungs: Clear JOEL upper lobes and decreased breath sounds in JOEL lower lobes, No accessory muscle use. Cardio: Normal S1/S2, regular rhythm, no murmurs, no JVD or carotid bruits. Abdomen: Soft, non-tender, no palpable masses, peristalsis present, no guarding or rebound. Extremities: Symmetrical, no significant deformities, no peripheral edema , non-tender, peripheral pulses presents. Skin: No rashes, no lesions, warm to touch. Neuro: No focal neurological deficits. motor and sensory intact. Psych: Cooperative, appropriate mood and effect. Objective Labs 06/30/24 05:17 06/30/24 05:17 Labs: Laboratory Results - last 24 hr 06/28/24 06/28/24 06/29/24 21:07 21:42 00:10 WBC 8.7 RBC 2.94 L Hgb 8.1 L Hct 24.9 L MCV 85 MCH 27.6 MCHC 32.5 RDW Std Deviation 39.6 Plt Count 193 Neut % (Auto) 79 Lymph % (Auto) 9 L [place] % (Auto) 8 Eos % (Auto) 2 Baso % (Auto) 1 Neut # (Auto) 6.9 Lymph # (Auto) 0.8 L [place] # (Auto) 0.7 Eos # (Auto) 0.2 Baso # (Auto) 0.0 Immature Gran # (Auto) 0.11 H Absolute Nucleated RBC 0.00 Immature Gran % 1 H Nucleated RBC % 0 PT 11.2 INR 1.0 APTT 28.0 Puncture Site Right Radial ABG pH 7.35 ABG pCO2 37 ABG pO2 85 ABG HCO3 20 ABG O2 Saturation 97 ABG Base Excess -5 L FiO2 46 Sodium 138 Potassium 4.6 Chloride 108 H Carbon Dioxide 20.3 Anion Gap 10 BUN 36 H Creatinine 2.0 H Estim Creat Clear Calc 28.0 L eGFR 26 L BUN/Creatinine Ratio 18 Glucose 143 H Calculated Osmolality 285 Lactic Acid 0.5 Calcium 8.7 Corrected Calcium 8.7 Phosphorus 4.6 Magnesium 2.0 Total Bilirubin 0.3 AST 13 ALT 10 Alkaline Phosphatase 61 Lactate Dehydrogenase 255 H Troponin I < 0.020 B-Natriuretic Peptide 372 H Total Protein 7.1 Albumin 4.2 Globulin 2.9 Albumin/Globulin Ratio 1.4 Lipase 37 Procalcitonin 0.13 Ur Collection Type Clean Catch Urine Color Colorless A Urine Clarity Clear Urine pH 6.0 Ur Specific [place] 1.009 Urine Protein 1+ A Urine Glucose (UA) Negative Urine Ketones Negative Urine Blood Negative Urine Nitrite Negative Urine Bilirubin Negative Urine Urobilinogen (Auto) Negative Ur Leukocyte Esterase Negative Urine RBC 2 Urine WBC < 1 Ur Squamous Epith Cells < 1 Urine Bacteria None RSV Rapid 06/29/24 06/29/24 04:26 05:22 WBC 7.5 RBC 2.83 L Hgb 7.8 L Hct 24.7 L MCV 87 MCH 27.6 MCHC 31.6 RDW Std Deviation 41.5 Plt Count 194 Neut % (Auto) 73 Lymph % (Auto) 14 [place] % (Auto) 10 Eos % (Auto) 2 Baso % (Auto) 0 Neut # (Auto) 5.5 Lymph # (Auto) 1.1 [place] # (Auto) 0.7 Eos # (Auto) 0.2 Baso # (Auto) 0.0 Immature Gran # (Auto) 0.05 H Absolute Nucleated RBC 0.00 Immature Gran % 1 H Nucleated RBC % 0 PT INR APTT Puncture Site ABG pH ABG pCO2 ABG pO2 ABG HCO3 ABG O2 Saturation ABG Base Excess FiO2 Sodium 139 Potassium 4.4 Chloride 110 H Carbon Dioxide 20.0 Anion Gap 9 BUN 33 H Creatinine 2.0 H Estim Creat Clear Calc 28.0 L eGFR 26 L BUN/Creatinine Ratio 17 Glucose 116 H Calculated Osmolality 285 Lactic Acid Calcium 8.9 Corrected Calcium Phosphorus 4.9 Magnesium 2.0 Total Bilirubin AST ALT Alkaline Phosphatase Lactate Dehydrogenase Troponin I B-Natriuretic Peptide Total Protein Albumin Globulin Albumin/Globulin Ratio Lipase Procalcitonin Ur Collection Type Urine Color Urine Clarity Urine pH Ur Specific [place] Urine Protein Urine Glucose (UA) Urine Ketones Urine Blood Urine Nitrite Urine Bilirubin Urine Urobilinogen (Auto) Ur Leukocyte Esterase Urine RBC Urine WBC Ur Squamous Epith Cells Urine Bacteria RSV Rapid Negative ABG Interpretation ABG results: 06/28/24 21:07 ABG pH 7.35 ABG pCO2 37 ABG pO2 85 ABG HCO3 20 ABG O2 Saturation 97 ABG Base Excess -5 L Quality Measures Quality Measures none Advance care planning discussed with:: patient and child Assessment & Plan Assessment Current Active Medications: Generic Name Dose Route Start Last Admin Trade Name Freq PRN Reason Stop Dose Admin Acetaminophen 650 mg 06/29/24 03:30 Acetaminophen 325 Mg Tablet PO 07/29/24 03:29 Q6H PRN Fever >100.4 or Pain 1-10 Albuterol/Ipratropium 3 ml 06/29/24 07:00 06/29/24 12:03 Albuterol/Ipratropium (Duoneb) Rt Usha 3 Ml Nebu INH 07/29/24 06:59 3 ml Q6HRRT MARNIE Administration Atorvastatin Calcium 80 mg 06/29/24 21:00 Atorvastatin Calcium 20 Mg Tablet PO 07/29/24 20:59 HS MARNIE Bisacodyl 10 mg 06/29/24 03:30 Bisacodyl 5 Mg Tabec PO 07/29/24 03:29 QDAY PRN CONSTIPATION Protocol Bumetanide 2 mg 06/30/24 09:00 Bumetanide Inj 0.25 Mg/Ml Vial 4 Ml IVP 07/29/24 04:49 DAILY MARNIE Clopidogrel Bisulfate 75 mg 06/29/24 09:00 06/29/24 09:03 Clopidogrel Bisulfate 75 Mg Tablet PO 07/29/24 08:59 75 mg QDAY MARNIE Administration Ezetimibe 10 mg 06/29/24 09:00 06/29/24 10:00 Ezetimibe 10 Mg Tablet PO 07/29/24 08:59 10 mg QDAY MARNIE Administration Heparin Sodium (Porcine) 5,000 unit 06/29/24 09:00 06/29/24 08:49 Heparin Sod Inj 5000 Unit/Ml Vial SC 07/13/24 08:59 Not Given Q12HR MARNIE Ceftriaxone Sodium/Dextrose 50 mls @ 100 mls/hr 06/29/24 21:00 Rocephin/D5w 1gm Iv Premix IV 07/06/24 20:59 QDAY@2100 MARNIE Azithromycin 500 mg/ Sodium 250 mls @ 250 mls/hr 06/30/24 09:00 Chloride IV 07/03/24 03:35 QDAY MARNIE Isosorbide Mononitrate 30 mg 06/29/24 09:00 06/29/24 10:00 Isosorbide Er Mononitrate 30 Mg Tabcr PO 07/29/24 08:59 30 mg QDAY MARNIE Administration Losartan Potassium 25 mg 06/29/24 09:00 06/29/24 09:02 Losartan Potassium 25 Mg Tablet PO 07/29/24 08:59 25 mg QDAY MARNIE Administration Ondansetron HCl 4 mg 06/29/24 03:30 Ondansetron Inj 2 Mg/Ml Inj 2 Ml IV 07/29/24 03:29 Q6H PRN NAUSEA OR VOMITING Protocol Pregabalin 75 mg 06/29/24 09:00 06/29/24 09:02 Pregabalin 75 Mg Capsule PO 07/29/24 08:59 75 mg QDAY MARNIE Administration Plan 69-year-old female with past medical history of HFpEF (50 to 55% EF in 06/2023), CKD stage III, hypertension, DM2, hyperlipidemia and CVA with no residual deficits was admitted to the hospital on 06/29/2024 due to acute hypoxic respiratory failure secondary to community-acquired pneumonia. #Hypoxia respiratory failure likely secondary to #Community-acquired pneumonia ? Patient came in with complaints of shortness of breath or cough ? Patient was hypoxic on admission ?Patient's chest x-ray showed bilateral pneumonia Plan: ? Continue with ceftriaxone and azithromycin [06/29/2024?] ? DuoNebs every 6 ? Blood and sputum cultures pending ? Cocci pending ? Continue O2 requirement as needed ? Will continue to monitor #Hx of hypertension ?Initially patient came in with 220/84 and improved without any antihypertensive medications 146/63 ? Will continue patient's Bumex 2 mg daily and losartan 25 mg daily ? Hydralazine 25 p.o. x 1 given today #HFpEF (50 to 55% 06/2023) ?Patient does not appear to be in any heart failure exacerbation at this time Plan: ? Strict MATTHEW's ? Bumex 2 mg daily ? Low-sodium diet ? Will continue to monitor #Hx of CKD stage III ? Patient's creatinine currently at 2, most likely is patient's baseline Plan: ? Avoid nephrotoxic agents ? Renally dose medication ? Will continue to monitor #Hx of DM2 ? A1c 6.8 Plan: ? ISS ? Accu-Cheks and hypoglycemic critical ordered ? Will continue monitor #Hx of CVA #Hx of hyperlipidemia ? Continue clopidogrel 75 mg daily ? Continue atorvastatin and ezetimibe Disposition: Patient admitted to med/tele continue Abx for PNA. Diet: Cardiac GI prophylaxis: not indicated DVT prophylaxis: Heparin sc Code: Full Case disclosed with Attending Dr. Joe Goncalves PGY1 Attending Provider Attestation/Addendum I reviewed labs, imaging, EKG, home medications and prior available records. Face to face evaluation was performed by me. I have personally examined the patient and discussed assessment and plan with the IM team. I reviewed the resident note and agree with the plan with exceptions as below. Acute hypoxic respiratory failure Community-acquired pneumonia Chronic CHF Continue oxygen as needed Continue ceftriaxone/azithromycin Follow-up cocci IgM Continue Bumex
[2024-06-29 14:46] LABS: Cocci Serology, IgM Negative (Negative)
[2024-06-29] MEDS: cefTRIAXone/D5w 1gm IV premix 50 ML IV (20:07)
[2024-06-29] MEDS: ATORVASTATIN CALCIUM 20 MG TABLET 80 MG PO (20:07)
[2024-06-29] MEDS: INSULIN LISPRO (AdmeLOG) 1 UNIT/0.01 ML UNIT SC (22:07)
[2024-06-30] VITALS (9 sets, daily range): BP systolic 149–159; BP diastolic 70–78; PULSE 66–79; RESP 15–19; TEMP 36.9–37.5; O2SAT 94–100
[2024-06-30] MEDS: ALBUTEROL/IPRATROPIUM (Duoneb) RT SOL 3 ML NEBU INH ×2 (01:15→06:37)
[2024-06-30 06:09] LABS: Basophils % (Auto) 0 % (0-2.5); Eosinophils # (Auto) 0.2 Thou/mm3 (0.0-0.5); Eosinophils % (Auto) 2 % (0-10); Hematocrit 27.3 % (36.0-46.0); Hemoglobin 8.9 g/dL (12.0-16.0); Immature Granulocytes % (Auto) 1 % (0-0); Immature Granulocytes Auto 0.04 Thou/mm3 (0.00-0.00); Lymphocytes # (Auto) 1.3 Thou/mm3 (1.0-4.8); Lymphocytes % (Auto) 16 % (10-50); Mean Corpuscular HGB Conc 32.6 g/dl (31.0-37.0); Mean Corpuscular Hemoglobin 28.1 pg (25.0-35.0); Mean Corpuscular Volume 86 fL (80-100); Monocytes # (Auto) 0.8 Thou/mm3 (0.0-0.8); Monocytes % (Auto) 10 % (0-12); Neutrophils # (Auto) 5.5 Thou/mm3 (1.8-7.7); Neutrophils % (Auto) 71 % (37-80); Nucleated Red Blood Cell % 0 /100 WBC (0); Platelet Count 214 Thou/mm3 (140-440); RDW Standard Deviation 40.3 fL (36.4-46.3); Red Blood Count 3.17 Miln/mm3 (4.00-5.20); White Blood Count 7.8 Thou/mm3 (3.6-11.0)
[2024-06-30 06:34] LABS: Anion Gap 10 (7-16); BUN/Creatinine Ratio 18 Ratio (12-20); Blood Urea Nitrogen 37 mg/dL (9-23); Calcium 9.3 mg/dL (8.3-10.6); Carbon Dioxide 23.5 mMol/L (20.0-31.0); Chloride 107 mMol/L (98-107); Creatinine (Component) 2.1 mg/dL (0.6-1.3); Estimated Creatinine Clearance 24.8 mL/min (>60); Glucose 114 mg/dL (74-106); Osmolality,Calculated 289 (275-295); Potassium 4.8 mMol/L (3.4-5.1); Sodium 140 mMol/L (136-145); eGFR 25 See Note
[2024-06-30] MEDS: ACETAMINOPHEN 325 MG TABLET 650 MG PO (07:46)
[2024-06-30] MEDS: LOSARTAN POTASSIUM 25 MG TABLET PO (09:29)
[2024-06-30] MEDS: PREGABALIN 75 MG CAPSULE PO (09:29)
[2024-06-30] MEDS: BUMETANIDE INJ 0.25 MG/ML VIAL 4 ML 2 MG IVP (09:29)
[2024-06-30] MEDS: AZITHROMYCIN 250 MG TABLET 500 MG PO (09:29)
[2024-06-30] MEDS: EZETIMIBE 10 MG TABLET PO (09:29)
[2024-06-30] MEDS: ISOSORBIDE ER MONONITRATE 30 MG TABCR PO (09:30)
[2024-06-30] MEDS: CLOPIDOGREL BISULFATE 75 MG TABLET PO (09:30)
[2024-06-30] MEDS: carVEDILOL 12.5 MG TABLET 25 MG PO (10:02)
--- NOTE | 2024-06-30 10:57 | ESDS_ITS ---
Planned Discharge Date 06/30/24 DS: Providers Provider Date of admission: 06/29/24 03:30 Primary care physician: Karishma Mitchell MD Admitting Provider: Hardik Kendall DO Attending Provider on Admission: Tejinder Diaz MD Attending Provider on DC: Tejinder Diaz MD Discharging Provider: Tejinder Diaz MD DS: Diagnosis Problem List Completed Was Problem List Reviewed/Reconciled?: Yes Hospital Course Hospital Course Hospital course: 69-year-old female with past medical history of HFpEF (50 to 55% EF in 06/2023), CKD stage III, hypertension, DM2, hyperlipidemia and CVA with no residual deficits was admitted to the hospital on 06/29/2024 due to acute hypoxic respiratory failure secondary to community-acquired pneumonia. In the ED patient came in with complaints of shortness of breath and initially patient was hypoxic, hypotensive, tachypneic, and afebrile. Initial labs were relevant for low hemoglobin (8.1), azotemia (BUN 26 and creatinine 2), elevated LDH (255), and elevated BNP (372). Initial imaging included chest x-ray which showed bibasilar pneumonia. Patient was treated with IV antibiotics Rocephin and pneumonia. She was also given breathing treatments as needed as well as diuretics daily. Patient's blood culture were negative in the first 24 hours. She improved significantly hypoxia and was saturating well on only 2 L of O2 the same day of admission. At the time of discharge she was stable enough to be discharged home. Disposition: Please follow-up with primary care physician in 1 week after discharge Please follow-up with combined rail operator and spinning frame cleaner in 1 to 2 weeks after discharge. You have been started on azithromycin for 1 more day and amoxicillin for 3 more days Please come back to the ER if symptoms persist or worsen Problem List: #Acute hypoxic respiratory failure likely secondary to #Community-acquired pneumonia #Hx of hypertension #HFpEF (50 to 55% 06/2023) #Hx of CKD stage III #Hx of DM2 #Hx of CVA #Hx of hyperlipidemia Case disclosed with Attending Dr. Joe Goncalves PGY1 Status at Discharge Overall status at discharge: patient is not back to baseline Time Spent with Patient Time attestation: Total time spent providing and/or coordinating discharge services:>35 min Exam Vital Signs Temp Pulse Resp BP Pulse Ox O2 Del Method O2 Flow Rate 99.5 F 66 15 159/73 H 96 Nasal Cannula 2 06/30/24 08:00 06/30/24 10:02 06/30/24 08:00 06/30/24 10:02 06/30/24 08:00 06/30/24 08:00 06/30/24 08:00 Narrative Exam General: A/O x3, no acute distress, well-nourished, well-developed Eyes: PERRL, EOMI. Anicteric, vision grossly intact. Ears: No ear pain, no ear discharge, Hearing grossly intact. Nose: No nasal discharge. Mouth/Throat: Moist mucous membranes, no redness, no lesions. Neck: Neck supple, non-tender, no cervical lymphadenopathy. Lungs: Clear JOEL, No accessory muscle use. Cardio: Normal S1/S2, regular rhythm, no murmurs, no JVD or carotid bruits. Abdomen: Soft, non-tender, no palpable masses, peristalsis present, no guarding or rebound. Extremities: Symmetrical, no significant deformities, no peripheral edema , non-tender, peripheral pulses presents. Skin: No rashes, no lesions, warm to touch. Neuro: No focal neurological deficits. motor and sensory intact. Psych: Cooperative, appropriate mood and effect. Discharge Plan Plan Patient Disposition: HOME (Self Care) Patient condition on transfer: Stable Care Plan Goals: Please follow-up with primary care physician in 1 week after discharge Please follow-up with combined rail operator and spinning frame cleaner in 1 to 2 weeks after discharge. You have been started on azithromycin for 1 more day and amoxicillin for 3 more days Please come back to the ER if symptoms persist or worsen Prescriptions/Referrals Prescriptions/Med Rec: Continued clopidogrel 75 mg Tablet 75 mg PO DAILY ezetimibe 10 mg Tablet 10 mg PO QPM hydralazine 50 mg Tablet 100 mg PO TID pregabalin 75 mg Capsule 75 mg PO QPM amoxicillin 875 mg tablet 875 mg PO BID 3 Days Qty: 6 0RF atorvastatin 80 mg tablet 80 mg PO QDAY Patient Comments: TAKE 1 TABLET BY MOUTH EVERY DAY Rx Instructions: takes in the afternoon carvedilol 25 mg tablet 25 mg PO BID Patient Comments: TAKE 1 TABLET BY MOUTH TWICE A DA doxazosin 2 mg Tablet 2 mg PO QPM Rybelsus 3 mg Tablet 3 mg PO QDAY isosorbide mononitrate 30 mg tablet extended release 24 hr 60 mg PO DAILY ferrous sulfate 325 mg (65 mg iron) Tablet 325 mg PO QDAY furosemide [Lasix] 40 mg tablet 40 mg PO Q OTHER DAY 30 Days Qty: 15 1RF guaifenesin 100 mg/5 mL liquid 200 mg PO Q4H PRN (Reason: congestion) Qty: 473 0RF albuterol sulfate 90 mcg/actuation HFA aerosol inhaler 1 inh inhalation QID PRN (Reason: shortness of breath or wheezing) Qty: 6.7 0RF albuterol sulfate 0.63 mg/3 mL solution for nebulization 0.63 mg inhalation QID PRN (Reason: shortness of breath or wheezing) Qty: 75 0RF Referrals: Karishma Mitchell MD [Primary Care Provider] - Patient/Caregiver Discharge Instructions Discharge Activity: activity as tolerated Other Discharge Activity Instructions:: Please follow-up with primary care physician in 1 week after discharge Please follow-up with combined rail operator and spinning frame cleaner in 1 to 2 weeks after discharge. You have been started on azithromycin for 1 more day and amoxicillin for 3 more days Please come back to the ER if symptoms persist or worsen Education Materials: Preventing Pneumonia, Treating Pneumonia, Preventing Common Respiratory ... Print Language: Korean Stand Alone Forms: Barbra Award Info., Patient Portal Info Letter Discharge Order Discharge Orders: Discharge (Routine); Ordered 06/30/24 Ordered By: Mario Peter Quality Discharge Quality Measures VTE prophylaxis Attestestation Attestation I reviewed labs, imaging, EKG, home medications and prior available records. Face to face evaluation was performed by me. I have personally examined the patient and discussed assessment and plan with the IM team. I reviewed the resident note and agree with the plan with exceptions as below. Acute hypoxic respiratory failure Community-acquired pneumonia Chronic CHF Essential hypertension She is on room air Will discharge on Augmentin and azithromycin Follow-up cocci IgM: Negative Continue home diuretic Continue home BP medications Time spent is 40 minutes. More than 50% of the time was spent on patient education and coordination of care.
[2024-06-30 14:38] LABS: Cocci Serology, IgG Negative (Negative)
== END 2024-06-30 12:07 | disposition home or self-care (01) | DRG 193 ==
LOC: SERX 06-29 02:57 → SERHOLD 06-29 04:02 → S3NX 06-29 19:02
PROVIDERS: Physician Assistant; Student in an Organized Health Care Education/Training Program; Admitting Provider Student in an Organized Health Care Education/Training Program; Emergency Provider Emergency Medicine; PCP Family Medicine; Visit Provider Student in an Organized Health Care Education/Training Program
DX: J18.9 Pneumonia, unspecified organism (principal); J96.01 Acute respiratory failure with hypoxia; I13.0 Hypertensive heart and chronic kidney disease with heart failure and stage 1 through stage 4 chronic kidney disease, or unspecified chronic kidney disease; I50.32 Chronic diastolic (congestive) heart failure; N18.30 Chronic kidney disease, stage 3 unspecified; Z79.02 Long term (current) use of antithrombotics/antiplatelets; Z79.899 Other long term (current) drug therapy; Z86.73 Personal history of transient ischemic attack (TIA), and cerebral infarction without residual deficits; E11.22 Type 2 diabetes mellitus with diabetic chronic kidney disease; E78.5 Hyperlipidemia, unspecified
CPT/HCPCS: 36415; 36600; 71046; 80048; 80053; 81001; 82803; 83605; 83615; 83690; 83735; 83880; 84100; 84145; 84484; 85025; 85610; 85730; 86331; 86635; 87040; 87077; 87086; 87186; 87205; 87400; 87634; 87811; 93225; 94640; 94667; A9270; J0456; J0696; J1815; J3490; J7050

== ENCOUNTER 2024-08-18 08:01 | Inpatient (IN) | payer MEDICARE, SELFPAY ==
[2024-08-18] VITALS (13 sets, daily range): BP systolic 153–205; BP diastolic 70–99; PULSE 72–92; RESP 16–22; TEMP 36.6–37.1; O2SAT 91–99; BMI 37.8
--- NOTE | 2024-08-18 08:17 | EKG_ITS ---
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
--- NOTE | 2024-08-18 08:17 | XR_ITS ---
Examination: PA lateral chest 2 views TECHNIQUE: Upright PA lateral chest 2 views Exam date and time: August 18, 2024 0839 hours Comparison April 28, 2025 INDICATIONS: SOB beginning 2 days ago. FINDINGS: Mild to moderate CHF Mild enlargement cardiac contour Prominent vascular congestion including central vascular engorgement with perihilar edema Consider superimposed right perihilar pneumonia IMPRESSION: Mild to moderate CHF Consider superimposed right perihilar pneumonia
--- NOTE | 2024-08-18 08:18 | EDRME_ITS ---
Rapid Medical Screening Exam [facility] Arrival date/time: 08/18/24 08:01 69-year-old female with a history of CHF, hypertension, hyperlipidemia, acute kidney injury, presents to the emergency room with a chief complaint of shortness of breath, coughing up phlegm, and generalized fatigue x 3 days. Patient states she was also drinking tea this morning and dropped around her chest. Patient has a fluid-filled blister on her left breast. I have greeted and performed a focused initial assessment of this patient. A com prehensive ED assessment and evaluation of the patient, analysis of all test results, and completion of the medical decision making process will be conducted by additional ED providers. Chief Complaint: Shortness of Breath/Dyspnea Vital signs: Vital Signs Temperature 97.9 F 08/18/24 08:13 Pulse Rate 72 08/18/24 08:13 Respiratory Rate 16 08/18/24 08:13 Blood Pressure 185/91 H 08/18/24 08:13 Pulse Oximetry (%) 92 L 08/18/24 08:13 Oxygen Delivery Method Room Air 08/18/24 08:13 Vital signs reviewed by provider: Yes
--- NOTE | 2024-08-18 09:02 | PD.EDSOB ---
ED SOB =RME/HPI General Chief Complaint: Shortness of Breath/Dyspnea Stated Complaint: DYSPNEA (92%) SINCE LAST NIGHT, BURN TO CHEST Time Seen by Provider: 08/18/24 08:34 Arrival date/time: 08/18/24 08:01 RME / HPI RME / HPI Narrative: 08/18/24 08:01 69-year-old female with a history of CHF, hypertension, hyperlipidemia, acute kidney injury, presents to the emergency room with a chief complaint of shortness of breath, coughing up phlegm, and generalized fatigue x 3 days. Patient states she was also drinking tea this morning and dropped around her chest. Patient has a fluid-filled blister on her left breast. I have greeted and performed a focused initial assessment of this patient. A comprehensive ED assessment and evaluation of the patient, analysis of all test results, and completion of the medical decision making process will be conducted by additional ED providers. DR. SAHU MAIN ED EVALUATION 69 year old female with history of CVA, HFpEF 50-55% 06/2023, CKD, hypertension, hyperlipidemia, diabetes presents to the ED for evaluation of shortness of breath beginning last night. Described feeling her lungs are congested and unable to get a good breath in. Accompanied by a productive cough, dizziness, and feeling fatigued. Patient additionally reported accidentally spilling hot water on her left breast last night and noted it blistering this morning. No other associated symptoms or complaints reported. Denies fevers, chills, chest pain, abdominal pain, n/v/d, or urinary symptoms. Related Data Home Medications ?Medication ?Instructions ?Recorded ?Confirmed atorvastatin 80 mg tablet 80 mg PO QDAY 03/10/22 06/29/24 carvedilol 25 mg tablet 25 mg PO BID 03/10/22 06/29/24 doxazosin 2 mg tablet 2 mg PO QPM 04/07/23 07/26/23 clopidogrel 75 mg tablet 75 mg PO DAILY 06/28/23 06/29/24 ezetimibe 10 mg tablet 10 mg PO QPM 06/28/23 06/29/24 hydralazine 50 mg tablet 100 mg PO TID 06/28/23 06/29/24 pregabalin 75 mg capsule 75 mg PO QPM 06/28/23 06/29/24 ferrous sulfate 325 mg (65 mg 325 mg PO QDAY 07/26/23 07/26/23 iron) tablet isosorbide mononitrate 30 mg 60 mg PO DAILY 07/26/23 06/29/24 tablet,extended release 24 hr semaglutide 3 mg tablet (Rybelsus) 3 mg PO QDAY 07/26/23 07/26/23 Previous Rx's ?Medication ?Instructions ?Recorded furosemide 40 mg tablet (Lasix) 40 mg PO Q OTHER DAY 30 days #15 07/28/23 tabs albuterol sulfate 0.63 mg/3 mL 0.63 mg (3 mL) inhalation QID PRN 07/29/23 solution for nebulization shortness of breath or wheezing #75 mL albuterol sulfate 90 mcg/actuation 1 inh inhalation QID PRN shortness 07/29/23 aerosol inhaler of breath or wheezing #6.7 grams guaifenesin 100 mg/5 mL oral liquid 200 mg (10 mL) PO Q4H PRN 07/29/23 congestion #473 mL amoxicillin 875 mg tablet 875 mg PO BID 3 days #6 tabs 06/30/24 Allergies Allergy/AdvReac Type Severity Reaction Status Date / Time lisinopril Allergy Severe Difficulty Verified 08/18/24 08:06 Breathing prednisone Allergy Severe Hypertensio Verified 08/18/24 08:06 n Review of Systems Review of Systems Narrative Review of Systems: Gen: No fever, no chills, no weight loss EYES: No discharge, no visual changes, no pain HEENT: No ear pain, no congestion, no sore throat PULM: + shortness of breath, +cough CV: No chest pain, no palpitations GI: No nausea, no vomiting, no diarrhea, no pain, no constipation : No frequency, no urgency,? no dysuria Musc/skel: No joint pain, no back pain Skin: +burn on left breast. No rash. Neuro: No weakness, no headache Past Medical History Past Medical History NEUROLOGIC: Positive Neurological Disorders and Cerebrovascular Accident CARDIAC: Positive Cardiac Disorders, Hypercholesterolemia, Congestive Heart Failure, Edema (To the bilateral lower extremities) and Hypertension RESPIRATORY: Positive Pneumonia GENITOURINARY: Positive Renal Disease (Stage 4) MUSCULOSKELETAL: Positive Musculoskeletal Disorders (Neuropathy) ENDOCRINE: Positive Endocrine Disorders, Diabetes Mellitus Type 2 and Hypothyroidism (Per daughter this has self corrected and she no longer needs meds for this.) HEMATOLOGIC: Positive Anemia OTHER HISTORY: Positive Hospitalization Surgical History SURGICAL: Positive Endocrine Surgery and Section; Negative Cardiac Surgery Social History SMOKING STATUS: Never smoker SECOND HAND EXPOSURE: No SUBSTANCE USE: does not use ED Exam Narrative Physical exam: GENERAL: In general the patient is awake, interactive, in an emergency department gurney, appears fatigued, ? HEAD/EYES/EARS/NOSE/THROAT: normo-cephalic, atraumatic, mucus membranes are moist.? No cervical tenderness palpation midline.? Supple neck. CARDIOVASCULAR: regular rate and regular rhythm, no murmurs, heart sounds are not distant, strong pulses in all four extremities that are equal and symmetric bilateral upper and lower extremities, normal capillary refill. CHEST/PULMONARY: normal chest rise and fall, good air movement, rhonchi L>R, normal inspiratory to expiratory ratios without evidence of respiratory distress. ABDOMEN: soft, large, no fluid wave, not tender, no masses appreciated, there is a well healed midline surgical scar BACK: normal range of motion without pain. NEUROLOGICAL: cranio-facial features are symmetric, moves all four extremities equally without obvious limitations or weakness. EXTREMITY: no tenderness to palpation over the long bones or large joints of the bilateral upper and lower extremities, no joint swelling, no joint erythema, no signs of trauma, +1 edema to BLE. SKIN: warm, dry, well-perfused, no jaundice, no rash, no telangiectasias or petechia. There is a 1cm x 1cm 2nd degree superficial burn that without blistering on the left upper abdomen and a 2cm x 1cm 2nd degree superficial burn to the left breast PSYCH: calm, cooperative, no evidence of psychosis or agitation Course Course Course Narrative: chest xray ordered to help determine etiology of shortness of breath. Quality Measures none Orders Category Date Time Status COVID-19 Screening Questionnaire NOW Care 08/18/24 10:30 Active Decision to Admit X1 Care 08/18/24 10:29 Completed EKG (ED ONLY) *Do not use* NOW Care 08/18/24 08:17 Completed EKG (ED Only) Stat Exams 08/18/24 08:17 Draft XR chest 2V Stat Exams 08/18/24 08:17 Completed B-Type Natriuretic Peptide Stat Lab 08/18/24 09:17 Completed CBC Stat Lab 08/18/24 09:17 Completed Comprehensive Metabolic Panel Stat Lab 08/18/24 09:17 Completed Magnesium Stat Lab 08/18/24 09:17 Completed Partial Thromboplastin Time Stat Lab 08/18/24 09:17 Completed Prothrombin Time with INR Stat Lab 08/18/24 09:17 Completed Troponin I Stat Lab 08/18/24 09:17 Completed Urinalysis Stat Lab 08/18/24 08:58 Completed Albuterol/Ipratr Rt Usha [Duoneb Rt Usha] Med 08/18/24 08:34 Discontinued 3 ml INH X1 ONE Metoprolol Tartrate Inj [Lopressor Inj] Med 08/18/24 10:24 Discontinued 5 mg IVP X1 ONE Nitroglycerin Oint 2% [Nitro-paste Oint 2%] Med 08/18/24 10:23 Discontinued 1 inch TOP X1 ONE Vital Signs Vital signs: Vital Signs Temperature 97.9 F 08/18/24 08:13 Pulse Rate 72 08/18/24 08:13 Respiratory Rate 16 08/18/24 08:13 Blood Pressure 185/91 H 08/18/24 08:13 Pulse Oximetry (%) 92 L 08/18/24 08:13 Oxygen Delivery Method Room Air 08/18/24 08:13 Pulse ox is 92% on room air which is low. Shortness of Breath / Dyspnea MDM Narrative MDM Narrative:: IFrancesca, alaina scribing for and in the presence of Dr. Sahu. Patient data External records reviewed:: [facility] previous records (I reviewed admission from 06/28/2024 through 06/30/2024 for hypoxia ) Clinical information provided by:: patient and family (daughter helped translate ) Social determinants that could affect healthcare access:: none Patient has the following chronic illnesses:: CVA, HFpEF 50-55% 06/2023, CKD, hypertension, hyperlipidemia, diabetes How is presenting disease/condition affected by chronic disease/condition?: exacerbated by Evaluation data The following diagnostics were reviewed and interpreted by me:: lab results, radiology exam(s) and EKG tracing(s) (sinus rhythm, rate 70, MO interval is normal, nonspecific ST and T-wave changes in lead I and aVL, no other acute changes, no ST depressions, no STEMI, QTc normal ) Lab and/or radiology exams considered but not ordered:: None Interpretation Summary: Ordering Physician: Ezequiel Motta Date of Service: 08/18/24 Procedure(s): XR chest 2V Accession Number(s): [id number] cc: Ezequiel Motta; Morro Farah MD~ Examination: PA lateral chest 2 views TECHNIQUE: Upright PA lateral chest 2 views Exam date and time: August 18, 2024 0839 hours Comparison April 28, 2025 INDICATIONS: SOB beginning 2 days ago. FINDINGS: Mild to moderate CHF Mild enlargement cardiac contour Prominent vascular congestion including central vascular engorgement with perihilar edema Consider superimposed right perihilar pneumonia IMPRESSION: Mild to moderate CHF Consider superimposed right perihilar pneumonia Dictated By: Morro Farah MD Signed By: <Electronically signed by Morro Farah MD in OV>08/18/24 0977 Medications / Prescriptions Medications or Prescriptions considered but not ordered:: None Medication administrations:: Medication Administration History Furosemide (Furosemide Inj 10 Mg/Ml 4ml Vial) 40 mg IVP BIDD MARNIE Stop: 09/17/24 17:59 Discontinued Medications Albuterol/Ipratropium (Albuterol/Ipratropium (Duoneb) Rt Usha 3 Ml Nebu) 3 ml INH X1 ONE Stop: 08/18/24 08:35 Last Admin: 08/18/24 09:03 Dose: 3 ml Documented By: MR Furosemide (Furosemide Inj 10 Mg/Ml 4ml Vial) 40 mg IVP X1 ONE Stop: 08/18/24 11:37 Hydralazine HCl (Hydralazine Inj 20 Mg/Ml Vial) 10 mg IV X1 ONE Stop: 08/18/24 11:37 Metoprolol Tartrate (Metoprolol Tartrate Inj 1 Mg/Ml Amp 5 Ml) 5 mg IVP X1 ONE Stop: 08/18/24 10:25 Last Admin: 08/18/24 10:36 Dose: 5 mg Documented By: OSCAR Nitroglycerin (Nitroglycerin Oint 2% 1 Inch Packet) 1 inch TOP X1 ONE Stop: 08/18/24 10:24 Last Admin: 08/18/24 10:35 Dose: 1 inch Documented By: OSCAR See above Consultations Consultation(s) initiated? (list below): Yes Consultation #1 (Physician, Specialty, Details): I spoke with hospitalist Dr. Diaz. Made aware of plan to admit and will notify the next team for admission. Consultation #2 (Physician, Specialty, Details): I spoke with resident Dr. Torrez working with Dr. Kendall. Discussed patients PMHx, HPI, ED course, exam findings, labs, and radiology results. The hospitalist will come evaluate the patient in the ED. Diagnosis Shortness of Breath Differential Diagnosis: acute exacerbation of chronic obstructive airways disease, congestive heart failure, community acquired pneumonia, asthma with exacerbation, pulmonary embolism and other (Viral illness) Most likely diagnosis given after review of the tests above:: CHF Acute renal failure Exertional dyspnea Admission Indicated Admission indicated?: indicated Admission Request Was there a request for admission?: Yes Admission Attestation Admission request attestation: Discussed case with [] from Hospitalist service regarding admission. Discussed patients ED course, exam findings, labs, and radiology results. The Hospitalist [agrees,declines] to accept the patient for admission. Disposition Plan Disposition Plan: Admit Discharge Plan Plan Patient Disposition: Admit Acute Care w/in Hospital Problem List Clinical Impression: Acute CHF, Acute renal failure, Exertional dyspnea
[2024-08-18] MEDS: ALBUTEROL/IPRATROPIUM (Duoneb) RT SOL 3 ML NEBU INH (09:03)
[2024-08-18 09:20] LABS: Collection Type, Urine Clean Catch
[2024-08-18 09:38] LABS: Bilirubin,Urine Negative (Negative); Blood,Urine Negative (Negative); Clarity,Urine Clear (Clear/Hazy); Color,Urine Lt Yellow (Lt Yel-Yel); Glucose, Urine Negative (Negative); Ketones,Urine Negative (Negative); Leukocyte Esterase,Urine Negative (Negative); Nitrite,Urine Negative (Negative); PH,Urine 6.5 (5.0-7.0); Protein,Urine 2+ (Neg - Trace); Specific Gravity,Urine 1.015 (1.001-1.035); Urobilinogen,Urine 0.2 mg/dL (0.0-1.0)
[2024-08-18 09:45] LABS: Basophils % (Auto) 1 % (0-2.5); Eosinophils # (Auto) 0.1 Thou/mm3 (0.0-0.5); Eosinophils % (Auto) 2 % (0-10); Hematocrit 26.8 % (36.0-46.0); Immature Granulocytes % (Auto) 0 % (0-0); Immature Granulocytes Auto 0.02 Thou/mm3 (0.00-0.00); Lymphocytes # (Auto) 0.9 Thou/mm3 (1.0-4.8); Lymphocytes % (Auto) 12 % (10-50); Mean Corpuscular HGB Conc 32.8 g/dl (31.0-37.0); Mean Corpuscular Hemoglobin 27.3 pg (25.0-35.0); Mean Corpuscular Volume 83 fL (80-100); Monocytes # (Auto) 0.6 Thou/mm3 (0.0-0.8); Monocytes % (Auto) 9 % (0-12); Neutrophils # (Auto) 5.2 Thou/mm3 (1.8-7.7); Neutrophils % (Auto) 75 % (37-80); Nucleated Red Blood Cell % 0 /100 WBC (0); Platelet Count 179 Thou/mm3 (140-440); RDW Standard Deviation 41.9 fL (36.4-46.3); Red Blood Count 3.22 Miln/mm3 (4.00-5.20); White Blood Count 6.8 Thou/mm3 (3.6-11.0)
[2024-08-18 10:00] LABS: Hemoglobin 8.8 g/dL (12.0-16.0)
[2024-08-18 10:04] LABS: Partial Thromboplastin Time 27.1 Seconds (22.0-36.0); Prothrombin Time 11.1 Seconds (9.0-12.2)
[2024-08-18 10:10] LABS: B-Type Natriuretic Peptide 364 pg/mL (0-100)
[2024-08-18 10:12] LABS: Alanine Aminotransferase 9 U/L (10-49); Albumin/Globulin Ratio 1.4 (1.2-2.2); Alkaline Phosphatase 68 U/L (46-116); Anion Gap 11 (7-16); Aspartate Amino Transferase 13 U/L (0-34); BUN/Creatinine Ratio 19 Ratio (12-20); Bilirubin,Total 0.4 mg/dL (0.3-1.2); Blood Urea Nitrogen 44 mg/dL (9-23); Calcium 8.7 mg/dL (8.3-10.6); Calcium (Corrected) 8.7 mg/dL (8.5-10.1); Carbon Dioxide 23.5 mMol/L (20.0-31.0); Chloride 105 mMol/L (98-107); Creatinine (Component) 2.3 mg/dL (0.6-1.3); Estimated Creatinine Clearance 23.4 mL/min (>60); Globulin 2.9 gm/dL (2.3-3.5); Glucose 193 mg/dL (74-106); Magnesium 1.8 mg/dL (1.6-2.6); Osmolality,Calculated 293 (275-295); Potassium 4.6 mMol/L (3.4-5.1); Sodium 139 mMol/L (136-145); Total Protein 6.9 gm/dL (5.7-8.2); Troponin I 0.021 ng/mL (0.0-0.045); eGFR 22 See Note
[2024-08-18 10:22] LABS: Bacteria,Urine Rare; RBC,Urine 2 /hpf (0-3); Squamous Epithelial Cell,Urine 5 /hpf (0-5); WBC,Urine 4 /hpf (0-5)
[2024-08-18 10:23] LABS: Hyaline Casts,Urine 1 /hpf (0-1); Mucus,Urine 2+ /lpf
[2024-08-18] MEDS: NITROGLYCERIN OINT 2% 1 INCH PACKET TOP (10:35)
[2024-08-18] MEDS: METOPROLOL TARTRATE INJ 1 MG/ML AMP 5 ML 5 MG IVP (10:36)
[2024-08-18] MEDS: hydrALAZINE INJ 20 MG/ML VIAL 10 MG IV (11:49)
[2024-08-18] MEDS: FUROSEMIDE INJ 10 MG/ML 4ML VIAL 40 MG IVP ×2 (11:50→18:14)
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
[2024-08-18] MEDS: cefTRIAXone 1,000 MG in SODIUM CHLORIDE 0.9% (Popper) 50 ML 100 MG IV (16:30)
[2024-08-18] MEDS: AZITHROMYCIN INJ 500 MG in SODIUM CHLORIDE 0.9% 250 ML 250 ML 250 MG IV (16:34)
[2024-08-19] VITALS (17 sets, daily range): BP systolic 120–177; BP diastolic 62–90; PULSE 63–80; RESP 16–19; TEMP 36.2–37; O2SAT 92–96; BMI 38.2
[2024-08-19] MEDS: FUROSEMIDE INJ 10 MG/ML 4ML VIAL 40 MG IVP ×2 (05:26→18:16)
[2024-08-19] MEDS: SENNA TABLET 1 TAB PO ×2 (05:26→08:23)
[2024-08-19 06:13] LABS: Basophils % (Auto) 1 % (0-2.5); Eosinophils # (Auto) 0.1 Thou/mm3 (0.0-0.5); Eosinophils % (Auto) 2 % (0-10); Hematocrit 27.3 % (36.0-46.0); Hemoglobin 9.1 g/dL (12.0-16.0); Immature Granulocytes % (Auto) 0 % (0-0); Immature Granulocytes Auto 0.02 Thou/mm3 (0.00-0.00); Immature Reticulocyte Fraction 13.8 % (3.0-15.9); Lymphocytes # (Auto) 1.1 Thou/mm3 (1.0-4.8); Lymphocytes % (Auto) 20 % (10-50); Mean Corpuscular HGB Conc 33.3 g/dl (31.0-37.0); Mean Corpuscular Hemoglobin 27.7 pg (25.0-35.0); Mean Corpuscular Volume 83 fL (80-100); Monocytes # (Auto) 0.5 Thou/mm3 (0.0-0.8); Monocytes % (Auto) 9 % (0-12); Neutrophils # (Auto) 3.5 Thou/mm3 (1.8-7.7); Neutrophils % (Auto) 67 % (37-80); Nucleated Red Blood Cell % 0 /100 WBC (0); Platelet Count 177 Thou/mm3 (140-440); RDW Standard Deviation 42.8 fL (36.4-46.3); Red Blood Count 3.28 Miln/mm3 (4.00-5.20); Reticulocyte % (Auto) 2.3 % (0.5-1.5); Reticulocyte Absolute Auto 75.4 Biln/L (25.0-75.0); Reticulocyte Hgb Content 32.3 pg (28.0-35.0); White Blood Count 5.3 Thou/mm3 (3.6-11.0)
[2024-08-19 06:27] LABS: Glucose Estimated Average 134 mg/dL (80-131); Hemoglobin A1C 6.3 % Hgb (4.8-6.0)
[2024-08-19 06:42] LABS: Alanine Aminotransferase 8 U/L (10-49); Albumin, Serum 3.8 gm/dL (3.4-4.8); Albumin/Globulin Ratio 1.3 (1.2-2.2); Alkaline Phosphatase 58 U/L (46-116); Anion Gap 10 (7-16); Aspartate Amino Transferase < 8 U/L (0-34); BUN/Creatinine Ratio 19 Ratio (12-20); Bilirubin,Total 0.4 mg/dL (0.3-1.2); Blood Urea Nitrogen 44 mg/dL (9-23); Calcium (Corrected) 9.2 mg/dL (8.5-10.1); Carbon Dioxide 24.6 mMol/L (20.0-31.0); Cardiac Risk Estimate 5.3 RATIO (3.7-5.6); Chloride 105 mMol/L (98-107); Cholesterol 228 mg/dL (132-200); Creatinine (Component) 2.3 mg/dL (0.6-1.3); Estimated Creatinine Clearance 23.5 mL/min (>60); Globulin 2.9 gm/dL (2.3-3.5); Glucose 106 mg/dL (74-106); HDL Cholesterol 43 mg/dL (40-60); LDL Cholesterol,Calculated 147 mg/dL (0-130); Magnesium 1.8 mg/dL (1.6-2.6); Osmolality,Calculated 290 (275-295); Phosphorous 4.9 mg/dL (2.4-5.1); Potassium 4.1 mMol/L (3.4-5.1); Sodium 140 mMol/L (136-145); Total Protein 6.7 gm/dL (5.7-8.2); Triglycerides 192 mg/dL (30-150); eGFR 22 See Note
[2024-08-19 06:50] LABS: Ferritin 57 ng/mL (7.3-270.7); Iron 46 mcg/dL (50-170); Percent Iron Saturation 17 % (20-55); Total Iron Binding Capacity 261 mcg/dL (250-425); Unsaturated Iron Binding 215 (225-295)
[2024-08-19] MEDS: cefTRIAXone 1,000 MG in SODIUM CHLORIDE 0.9% (Popper) 50 ML 100 MG IV (08:18)
[2024-08-19] MEDS: amLODIPine BESYLATE 5 MG TABLET 10 MG PO (08:22)
[2024-08-19] MEDS: LOSARTAN POTASSIUM 25 MG TABLET 50 MG PO (08:23)
[2024-08-19] MEDS: carVEDILOL 12.5 MG TABLET 25 MG PO ×2 (08:24→18:18)
[2024-08-19 08:57] LABS: Path Review Blood Smear Sent to Pathologist
[2024-08-19] MEDS: AZITHROMYCIN INJ 250 MG in SODIUM CHLORIDE 0.9% 250 ML 250 ML IV (09:30)
[2024-08-19] MEDS: hydrALAZINE HCL 25 MG TABLET 100 MG PO (09:41)
[2024-08-19] MEDS: ISOSORBIDE ER MONONITRATE 30 MG TABCR 60 MG PO (09:42)
[2024-08-19] MEDS: Magnesium Sulfate 4 GM Ivpb 4 GM/50 ML BAG IV (11:29)
--- NOTE | 2024-08-19 14:13 | ESPR_ITS ---
<Statement entered by Treasure Gaspar MD - 08/20/24 07:45> Patient was seen and examined by me personally. I have directly supervised and reviewed documentation by the team resident and agree with its findings with any exceptions or additional findings as below. Plan of care was discussed with the attending, Dr. Diaz. Patient is diuresing well, has good urine output. She is still endorsing some chest heaviness and shortness of breath although patient is saturating well on room air. BP is still elevated so resumed home hydralazine and isosorbide mononitrate. Patient did refuse some meds last night due to fasting. Patient educated on importance of medication compliance. Will continue Lasix 40 mg IV BID and plan for discharge likely tomorrow. Treasure Gaspar, PGY-2 Documentation for date of: 08/19/24 Subjective Subjective Interval history: 08/19/2024: No acute overnight events to report. Patient seen and examined in hospital bed remains on room air satting well without any concerning cardiac symptoms such as chest pain/tightness, palpitations, dizziness or headaches. Patient does still feel slightly short of breath, as such we will increase IV Lasix dose from 40 mg daily to twice daily. Restarted patient's other antihypertensive medication such as isosorbide mononitrate 60 mg but will hold hydralazine 50 mg 3 times daily as the patient's blood pressure is better controlled. Will continue monitor the patient and expect discharge within the next 24 to 48 hours. Exam Vital Signs Temp Pulse Resp BP Pulse Ox O2 Del Method 97.7 F 73 18 132/70 H 95 Room Air 08/19/24 11:51 08/19/24 11:51 08/19/24 11:51 08/19/24 11:51 08/19/24 11:51 08/19/24 11:51 Narrative Exam Physical Exam: GENERAL: Awake, answering questions appropriately in Azeri, appears stated age HEENT: NC/AT. Moist mucosa. PERRLA/EOMI. CARDIO: Heart RRR, no obvious murmurs, no JVD. PULM: No coughing or visible SOB. Crackles auscultated on right lower lung field, no wheeze/rales/rhonchi GI: Abdomen soft, NT, distended with ballotable fluid, no caput medusae noted, no guarding, no rebound tenderness and borborygmi apparent SKIN/MSK/EXT: Nonpitting edema noted on bilateral lower extremities up to estrada. No wounds/discoloration/rashes/amputations noted. +Pedal pulses present B/L. NEURO: Oriented x 3, Moves extremities x4, no focal neurologic deficits noted Objective Labs 08/19/24 05:18 08/19/24 05:18 Labs: Laboratory Results - last 24 hr 08/19/24 05:18 WBC 5.3 RBC 3.28 L Hgb 9.1 L Hct 27.3 L MCV 83 MCH 27.7 MCHC 33.3 RDW Std Deviation 42.8 Plt Count 177 Neut % (Auto) 67 Lymph % (Auto) 20 [place] % (Auto) 9 Eos % (Auto) 2 Baso % (Auto) 1 Neut # (Auto) 3.5 Lymph # (Auto) 1.1 [place] # (Auto) 0.5 Eos # (Auto) 0.1 Baso # (Auto) 0.0 Immature Gran # (Auto) 0.02 H Absolute Nucleated RBC 0.00 Immature Gran % 0 Nucleated RBC % 0 Smear Path Review Sent to Pathologist Retic Count (auto) 2.3 H Absolute Retic 75.4 H Immature Retic Fraction 13.8 Retic Hgb Content CHr 32.3 Sodium 140 Potassium 4.1 D Chloride 105 Carbon Dioxide 24.6 Anion Gap 10 BUN 44 H Creatinine 2.3 H Estim Creat Clear Calc 23.5 L eGFR 22 L BUN/Creatinine Ratio [address] Glu mg/dL 134 H Hemoglobin A1c 6.3 H Calculated Osmolality 290 Calcium 9.0 Corrected Calcium 9.2 Phosphorus 4.9 Magnesium 1.8 Iron 46 L TIBC 261 Iron Saturation 17 L Unsat Iron Binding 215 L Ferritin 57 Total Bilirubin 0.4 AST < 8 ALT 8 L Alkaline Phosphatase 58 Total Protein 6.7 Albumin 3.8 Globulin 2.9 Albumin/Globulin Ratio 1.3 Triglycerides 192 H Cholesterol 228 H LDL Cholesterol, Calc 147 H HDL Cholesterol 43 Cholesterol/HDL Ratio 5.3 Quality Measures Quality Measures none Advance care planning discussed with:: patient and child Assessment & Plan Assessment Current Active Medications: Generic Name Dose Route Start Last Admin Trade Name Freq PRN Reason Stop Dose Admin Amlodipine Besylate 10 mg 08/18/24 15:20 08/19/24 08:22 Amlodipine Besylate 5 Mg Tablet PO 09/17/24 15:19 10 mg QDAY MARNIE Administration Carvedilol 25 mg 08/18/24 17:30 08/19/24 08:24 Carvedilol 12.5 Mg Tablet PO 09/17/24 17:29 25 mg BIDWM MARNIE Administration Dextrose 25 ml 08/18/24 13:21 Dextrose 50%-Water Inj 50 Ml Syringe IV 09/17/24 13:20 Q15MIN PRN BG 50-70 responsive npo pt Dextrose 50 ml 08/18/24 13:21 Dextrose 50%-Water Inj 50 Ml Syringe IV 09/17/24 13:20 Q15MIN PRN BG <50 OR BG <70 & pt unresponsive Furosemide 40 mg 08/18/24 18:00 08/19/24 05:26 Furosemide Inj 10 Mg/Ml 4ml Vial IVP 09/17/24 17:59 40 mg BIDD MARNIE Administration Glucagon 1 mg 08/18/24 13:21 Glucagon Inj 1 Mg Vial IM Q15MIN PRN BG <70, and no IV access Heparin Sodium (Porcine) 5,000 unit 08/18/24 14:00 08/19/24 05:30 Heparin Sod Inj 5000 Unit/Ml Vial SC 09/01/24 13:59 Not Given Q8HR MARNIE Hydralazine HCl 10 mg 08/18/24 14:45 Hydralazine Inj 20 Mg/Ml Vial IV 09/17/24 14:44 Q6H PRN SBP > 180 Hydralazine HCl 100 mg 08/19/24 09:15 08/19/24 09:41 Hydralazine Hcl 25 Mg Tablet PO 09/18/24 09:14 100 mg TID MARNIE Administration Insulin Human Lispro 0 unit 08/18/24 17:00 08/19/24 11:30 Insulin Lispro (Admelog) 1 Unit/0.01 Ml Unit SC 09/17/24 16:59 Not Given AC [facility] Protocol Isosorbide Mononitrate 60 mg 08/19/24 09:15 08/19/24 09:42 Isosorbide Er Mononitrate 30 Mg Tabcr PO 09/18/24 09:14 60 mg DAILY MARNIE Administration Losartan Potassium 50 mg 08/19/24 09:00 08/19/24 08:23 Losartan Potassium 25 Mg Tablet PO 09/18/24 08:59 50 mg QDAY MARNIE Administration Ondansetron HCl 4 mg 08/18/24 11:45 Ondansetron Inj 2 Mg/Ml Inj 2 Ml IV 09/17/24 11:44 Q6H PRN NAUSEA OR VOMITING Protocol Sennosides 1 tab 08/19/24 05:00 08/19/24 08:23 Senna Tablet PO 09/18/24 04:59 1 tab QDAY MARNIE Administration Protocol Plan 69-year-old female with past medical history of HFpEF (50-55% 06/28/2023), CKD stage 4, hypertension, DM2, CVA in 2019 without residual deficits, and hyperlipidemia presented with shortness of breath which has been ongoing for the past 3 days will be admitted for CHF exacerbation and started on IV diuretics, blood pressure management and treatment for possible superimposed pneumonia. #Acute on chronic congestive heart failure exacerbation #HFpEF #Possible superimposed community-acquired pneumonia Patient has extensive cardiac history as noted from documentation Follows cardiology in [place] but is currently transitioning to a local medical billing clerk, unsure at this time the medical billing clerk is Patient is on Bumex 2 mg, isosorbide mononitrate 60 mg, carvedilol 25 mg twice daily, losartan 50 mg Echo from 06/28/2023 showed: Normal LV size and function. Estimated EF 50-55%. Normal RV size and function. RVSP 32 mm hg. Trace TR, PI, MR In the ED, patient presented with an elevated BNP of 364 EKG normal sinus rhythm Chest x-ray shows mild enlargement of the cardiac contour with prominent vascular congestion and possible superimposed right perihilar pneumonia Patient does state that she has been having a cough for the past 3 days but no fever/chills and white count is within normal limits Plan: Increased IV Lasix to 40 mg twice daily Strict I's and O's Daily weight Fluid restriction 1500 mL #Hypertensive urgency #Hypertension Patient presented to the ED with severely elevated blood pressure systolic in the high 190s Baseline is on home Bumex, isosorbide mononitrate, carvedilol, hydralazine 100 mg 3 times daily, losartan 50 mg daily, amlodipine 10 mg daily Apparently patient's been taking her medications at 3 AM secondary to holiday that she celebrates In the ED, patient was given X 1 on nitroglycerin topical, metoprolol tartrate 5 mg IV x 1, hydralazine 10 mg IV x 1 Plan: Continue home amlodipine 10, losartan 50 qday and coreg 25mg po bid Restarted patient's isosorbide mononitrate 60 mg daily Will hold hydralazine 100mg po tid at this time PRN hydralazine 10mg q6h #CKD stage IV #MIRIAM on CKD As noted in HPI, patient follows Dr. Reid outpatient for CKD management EGFR currently is 22 MIRIAM likely secondary to prerenal azotemia due to CHF exacerbation Plan: Avoid nephrotoxic agents Renally dose medications Monitor with morning labs #Neo-dmfvsfu-yfnfekezs type 2 diabetes #Hyperlipidemia Patient's A1c 6.8 in 2023 Patient is on Ozempic at home, no insulin noted Has complications secondary to diabetes, likely diabetic nephropathy A1c of 6.3% Lipid panel shows: Triglycerides 192, cholesterol 228, LDL 147, HDL 43 22.2% Risk of cardiovascular event (coronary or stroke or non-fatal TN or stroke) in next 10 years. Plan: SSI Bedside glucose checks AC Patient could benefit from PCSK9 Inhibitors?injectable therapy to lower LDL, will advise that outpatient #Anemia of chronic disease Likely anemia of chronic disease as the patient has been having anemia for several years Other differentials include vitamin deficiency, iron deficiency anemia, hemolytic anemia less likely and myelosuppression, metastatic process less likely MCV of 83 Iron panel shows: Iron 46, TIBC 261, iron saturation 17%, ferritin 57 Reticulocyte count elevated in the setting of anemia Plan: Follow-up with peripheral blood smear #History of CVA in 2019 Chronic medical condition not pertinent to the following presentation Hospital Management: Lines: PIV Diet: Cardiac, renal, carb consistent low with 1500 mL fluid restriction Bowel: Senna GI prophylaxis: Not needed DVT prophylaxis: Heparin subcu Dispo: IV Lasix for CHF exacerbation, blood pressure management and treatment for superimposed pneumonia Code: Full Patient seen and assessed with attending Dr. Diaz and senior resident Dr. Chasity Parrish, PGY-1 Attending Provider Attestation/Addendum I reviewed labs, imaging, EKG, home medications and prior available records. Face to face evaluation was performed by me. I have personally examined the patient and discussed assessment and plan with the IM team. I reviewed the resident note and agree with the plan with exceptions as below. CHF exacerbation, possibly due to diet and fluid noncompliance in addition to poor BP management HFpEF Possible associated pneumonia Hypertensive urgency Hyperlipidemia CKD stage III History of CVA Possible medication/diet/fluid restriction noncompliance in the setting of fasting and drinking plenty of water in between Continue IV diuretics Monitor I's and O's Discontinued antibiotics as is less likely to be pneumonia Resume all home BP medications. Will discuss with her daughter medication compliance. Monitor kidney function. Avoid nephrotoxins. Renally dosed medications
[2024-08-20] VITALS (9 sets, daily range): BP systolic 134–154; BP diastolic 64–73; PULSE 59–71; RESP 16–18; TEMP 36.1–36.6; O2SAT 93–98; BMI 38.2
[2024-08-20] MEDS: PREGABALIN 75 MG CAPSULE PO ×2 (00:10→21:27)
[2024-08-20] MEDS: FUROSEMIDE INJ 10 MG/ML 4ML VIAL 40 MG IVP (05:57)
[2024-08-20 06:00] LABS: Basophils % (Auto) 0 % (0-2.5); Eosinophils # (Auto) 0.1 Thou/mm3 (0.0-0.5); Eosinophils % (Auto) 2 % (0-10); Hematocrit 27.3 % (36.0-46.0); Immature Granulocytes % (Auto) 0 % (0-0); Immature Granulocytes Auto 0.01 Thou/mm3 (0.00-0.00); Lymphocytes % (Auto) 16 % (10-50); Mean Corpuscular Hemoglobin 27.8 pg (25.0-35.0); Mean Corpuscular Volume 84 fL (80-100); Monocytes # (Auto) 0.6 Thou/mm3 (0.0-0.8); Monocytes % (Auto) 11 % (0-12); Neutrophils # (Auto) 4.1 Thou/mm3 (1.8-7.7); Neutrophils % (Auto) 70 % (37-80); Nucleated Red Blood Cell % 0 /100 WBC (0); Platelet Count 175 Thou/mm3 (140-440); RDW Standard Deviation 43.5 fL (36.4-46.3); Red Blood Count 3.24 Miln/mm3 (4.00-5.20); White Blood Count 5.9 Thou/mm3 (3.6-11.0)
[2024-08-20 06:44] LABS: Alanine Aminotransferase < 7 U/L (10-49); Albumin, Serum 3.8 gm/dL (3.4-4.8); Albumin/Globulin Ratio 1.4 (1.2-2.2); Alkaline Phosphatase 58 U/L (46-116); Anion Gap 9 (7-16); Aspartate Amino Transferase 12 U/L (0-34); BUN/Creatinine Ratio 19 Ratio (12-20); Bilirubin,Total 0.3 mg/dL (0.3-1.2); Blood Urea Nitrogen 52 mg/dL (9-23); Calcium (Corrected) 9.2 mg/dL (8.5-10.1); Carbon Dioxide 24.6 mMol/L (20.0-31.0); Chloride 104 mMol/L (98-107); Creatinine (Component) 2.7 mg/dL (0.6-1.3); Globulin 2.8 gm/dL (2.3-3.5); Glucose 128 mg/dL (74-106); Magnesium 2.9 mg/dL (1.6-2.6); Osmolality,Calculated 291 (275-295); Phosphorous 5.5 mg/dL (2.4-5.1); Potassium 4.3 mMol/L (3.4-5.1); Sodium 138 mMol/L (136-145); Total Protein 6.6 gm/dL (5.7-8.2); eGFR 18 See Note
[2024-08-20] MEDS: SENNA TABLET 1 TAB PO (09:03)
[2024-08-20] MEDS: ISOSORBIDE ER MONONITRATE 30 MG TABCR 60 MG PO (09:04)
[2024-08-20] MEDS: carVEDILOL 12.5 MG TABLET 25 MG PO ×2 (09:04→18:01)
[2024-08-20] MEDS: amLODIPine BESYLATE 5 MG TABLET 10 MG PO (09:04)
--- NOTE | 2024-08-20 12:04 | ESPR_ITS ---
<Statement entered by Treasure Gaspar MD - 08/21/24 05:13> Patient was seen and examined by me personally. I have directly supervised and reviewed documentation by the team resident and agree with its findings with any exceptions or additional findings as below. Plan of care was discussed with the attending, Dr. Umana. Patient appeared well, denied any complaints this morning, stating that she was feeling ready to go home. Seen with daughter at bedside. Patient had worsening of creatinine today from 2.3 to 2.7, therefore patient will be monitored another day pending improvement of renal functioning. Lasix dose was reduced from 40 mg IV twice daily to once daily and fluid restriction was increased from 1500 to 1800 ml. Home losartan was held, continue carvedilol, hydralazine, and isosorbide mononitrate for BP control. Treasure Gaspar, PGY-2 Documentation for date of: 08/20/24 Subjective Subjective Interval history: 08/20/2024: No acute overnight events to report. Patient seen and examined in hospital bed is awake and answering questions appropriately and does not appear to be volume overloaded at this time. Patient remains on room air and denies having any concerning symptoms such as chest pain, shortness of breath, palpitations or any new dizziness/headaches. Patient's kidney function slightly worsened today likely secondary to increased diuretics. As such, we will decrease Lasix dose from twice daily to daily and will increase the patient's fluid restrictions from 1500 mL to 1800 mL. Will continue to monitor the patient for any acute changes and expect discharge within the next 24 hours. Exam Vital Signs Temp Pulse Resp BP Pulse Ox O2 Del Method 97.1 F 63 18 149/73 H 98 Room Air 08/20/24 08:00 08/20/24 09:04 08/20/24 08:00 08/20/24 09:04 08/20/24 08:00 08/20/24 08:00 Narrative Exam Physical Exam: GENERAL: Awake, answering questions appropriately in Portuguese, appears stated age HEENT: NC/AT. Moist mucosa. PERRLA/EOMI. CARDIO: Heart RRR, no obvious murmurs, no JVD. PULM: No coughing or visible SOB. Crackles auscultated on right lower lung field, no wheeze/rales/rhonchi GI: Abdomen soft, NT, mildly distended with ballotable fluid, no caput medusae noted, no guarding, no rebound tenderness and borborygmi apparent SKIN/MSK/EXT: Nonpitting edema noted on bilateral lower extremities up to estrada. No wounds/discoloration/rashes/amputations noted. +Pedal pulses present B/L. NEURO: Oriented x 3, Moves extremities x4, no focal neurologic deficits noted Objective Labs 08/21/24 04:20 08/21/24 04:20 Labs: Laboratory Results - last 24 hr 08/20/24 04:41 WBC 5.9 RBC 3.24 L Hgb 9.0 L Hct 27.3 L MCV 84 MCH 27.8 MCHC 33.0 RDW Std Deviation 43.5 Plt Count 175 Neut % (Auto) 70 Lymph % (Auto) 16 [place] % (Auto) 11 Eos % (Auto) 2 Baso % (Auto) 0 Neut # (Auto) 4.1 Lymph # (Auto) 1.0 [place] # (Auto) 0.6 Eos # (Auto) 0.1 Baso # (Auto) 0.0 Immature Gran # (Auto) 0.01 H Absolute Nucleated RBC 0.00 Immature Gran % 0 Nucleated RBC % 0 Sodium 138 Potassium 4.3 Chloride 104 Carbon Dioxide 24.6 Anion Gap 9 BUN 52 H Creatinine 2.7 H Estim Creat Clear Calc 20.0 L eGFR 18 L BUN/Creatinine Ratio 19 Glucose 128 H Calculated Osmolality 291 Calcium 9.0 Corrected Calcium 9.2 Phosphorus 5.5 H Magnesium 2.9 H Total Bilirubin 0.3 AST 12 ALT < 7 L Alkaline Phosphatase 58 Total Protein 6.6 Albumin 3.8 Globulin 2.8 Albumin/Globulin Ratio 1.4 Quality Measures Quality Measures none Advance care planning discussed with:: patient and child Assessment & Plan Assessment Current Active Medications: Generic Name Dose Route Start Last Admin Trade Name Freq PRN Reason Stop Dose Admin Amlodipine Besylate 10 mg 08/18/24 15:20 08/20/24 09:04 Amlodipine Besylate 5 Mg Tablet PO 09/17/24 15:19 10 mg QDAY MARNIE Administration Carvedilol 25 mg 08/18/24 17:30 08/20/24 09:04 Carvedilol 12.5 Mg Tablet PO 09/17/24 17:29 25 mg BIDWM MARNIE Administration Dextrose 25 ml 08/18/24 13:21 Dextrose 50%-Water Inj 50 Ml Syringe IV 09/17/24 13:20 Q15MIN PRN BG 50-70 responsive npo pt Dextrose 50 ml 08/18/24 13:21 Dextrose 50%-Water Inj 50 Ml Syringe IV 09/17/24 13:20 Q15MIN PRN BG <50 OR BG <70 & pt unresponsive Furosemide 40 mg 08/21/24 09:00 Furosemide Inj 10 Mg/Ml 4ml Vial IVP 09/20/24 08:59 QDAY MARNIE Glucagon 1 mg 08/18/24 13:21 Glucagon Inj 1 Mg Vial IM Q15MIN PRN BG <70, and no IV access Heparin Sodium (Porcine) 5,000 unit 08/18/24 14:00 08/20/24 06:18 Heparin Sod Inj 5000 Unit/Ml Vial SC 09/01/24 13:59 Not Given Q8HR MARNIE Hydralazine HCl 100 mg 08/20/24 07:56 Hydralazine Hcl 25 Mg Tablet PO 09/18/24 09:14 TID PRN systolic >160 Insulin Human Lispro 0 unit 08/18/24 17:00 08/20/24 07:46 Insulin Lispro (Admelog) 1 Unit/0.01 Ml Unit SC 09/17/24 16:59 Not Given AC MARNIE Protocol Isosorbide Mononitrate 60 mg 08/19/24 09:15 08/20/24 09:04 Isosorbide Er Mononitrate 30 Mg Tabcr PO 09/18/24 09:14 60 mg DAILY MARNIE Administration Losartan Potassium 50 mg 08/19/24 09:00 08/19/24 08:23 Losartan Potassium 25 Mg Tablet PO 09/18/24 08:59 50 mg QDAY MARNIE Administration Ondansetron HCl 4 mg 08/18/24 11:45 Ondansetron Inj 2 Mg/Ml Inj 2 Ml IV 09/17/24 11:44 Q6H PRN NAUSEA OR VOMITING Protocol Pregabalin 75 mg 08/19/24 23:59 08/20/24 00:10 Pregabalin 75 Mg Capsule PO 09/18/24 23:58 75 mg HS MARNIE Administration Sennosides 1 tab 08/19/24 05:00 08/20/24 09:03 Senna Tablet PO 09/18/24 04:59 1 tab QDAY MARNIE Administration Protocol Plan 69-year-old female with past medical history of HFpEF (50-55% 06/28/2023), CKD stage 4, hypertension, DM2, CVA in 2019 without residual deficits, and hyperlipidemia presented with shortness of breath which has been ongoing for the past 3 days will be admitted for CHF exacerbation and started on IV diuretics, blood pressure management and treatment for possible superimposed pneumonia. 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 Estimated EF 50-55%. Normal RV size and function. RVSP 32 mm hg. Trace TR, PI, MR In the ED, patient presented with an elevated BNP of 364 EKG normal sinus rhythm Chest x-ray shows mild enlargement of the cardiac contour with prominent vascular congestion and possible superimposed right perihilar pneumonia Patient does state that she has been having a cough for the past 3 days but no fever/chills and white count is within normal limits Plan: Decreased IV Lasix to 40 mg once daily Strict I's and O's Daily weight Increased fluid restriction to 1800 mL #Hypertensive urgency #Hypertension Patient presented to the ED with severely elevated blood pressure systolic in the high 190s Baseline is on home Bumex, isosorbide mononitrate, carvedilol, hydralazine 100 mg 3 times daily, losartan 50 mg daily, amlodipine 10 mg daily Apparently patient's been taking her medications at 3 AM secondary to holiday that she celebrates In the ED, patient was given X 1 on nitroglycerin topical, metoprolol tartrate 5 mg IV x 1, hydralazine 10 mg IV x 1 Plan: Continue home amlodipine 10 p.o. daily and coreg 25mg po bid Continue patient's isosorbide mononitrate 60 mg p.o. daily Restarted patient's hydralazine 50 mg p.o. 3 times daily as needed if systolic blood pressure is greater than 160 Will hold losartan 50 qday secondary to worsening creatinine #CKD stage IV #MIRIAM on CKD As noted in HPI, patient follows Dr. Reid outpatient for CKD management EGFR currently is 22 MIRIAM likely secondary to prerenal azotemia due to CHF exacerbation Plan: Avoid nephrotoxic agents Renally dose medications Monitor with morning labs #Oxa-fwfvacz-irldzmeiv type 2 diabetes #Hyperlipidemia Patient's A1c 6.8 in 2023 Patient is on Ozempic at home, no insulin noted Has complications secondary to diabetes, likely diabetic nephropathy A1c of 6.3% Lipid panel shows: Triglycerides 192, cholesterol 228, LDL 147, HDL 43 22.2% Risk of cardiovascular event (coronary or stroke or non-fatal ID or stroke) in next 10 years. Plan: SSI Bedside glucose checks AC Patient could benefit from PCSK9 Inhibitors?injectable therapy to lower LDL, will advise that outpatient #Anemia of chronic disease Likely anemia of chronic disease as the patient has been having anemia for several years Other differentials include vitamin deficiency, iron deficiency anemia, hemolytic anemia less likely and myelosuppression, metastatic process less likely MCV of 83 Iron panel shows: Iron 46, TIBC 261, iron saturation 17%, ferritin 57 Reticulocyte count elevated in the setting of anemia Plan: Follow-up with peripheral blood smear #History of CVA in 2019 Chronic medical condition not pertinent to the following presentation Hospital Management: Lines: PIV Diet: Cardiac, renal, carb consistent low with 1500 mL fluid restriction Bowel: Senna GI prophylaxis: Not needed DVT prophylaxis: Heparin subcu Dispo: IV Lasix for CHF exacerbation, monitoring kidney function Code: Full Patient seen and assessed with attending Dr. Umana and senior resident Dr. Chasity Parrish, PGY-1 Attending Provider Attestation/Addendum I, Reena Umana, DO, attest that I was physically present for the harper portions of the service and evaluated the patient with the resident and I reviewed and discussed the case with the resident and agree with the resident's findings and plans of care as documented above Patient seen and evaluated this AM. She is anxious to go home. However, patient with MIRIAM, likely due to extra diuresis. Will switch lasix to once daily. Will decrease fluid restriction to 1800mL. If renal function improves, anticipate DC in AM.
--- NOTE | 2024-08-20 15:14 | PC.SS ---
Follow up note: Monitor Kidney Function. IV diuresis. Pt will return home upon dc.
--- NOTE | 2024-08-20 16:07 | PC.SS ---
Follow up note: Monitor Kidney Function. IV diuresis.
[2024-08-21] VITALS: BP 162/70; PULSE 55; PULSE 57; RESP 16; TEMP 36.1; O2SAT 97
[2024-08-21 04:00] VITALS: BP 150/75; PULSE 62; PULSE 64; RESP 16; TEMP 36.1; O2SAT 96
[2024-08-21 06:03] LABS: Basophils % (Auto) 1 % (0-2.5); Eosinophils # (Auto) 0.1 Thou/mm3 (0.0-0.5); Eosinophils % (Auto) 2 % (0-10); Hematocrit 27.1 % (36.0-46.0); Immature Granulocytes % (Auto) 0 % (0-0); Immature Granulocytes Auto 0.02 Thou/mm3 (0.00-0.00); Lymphocytes # (Auto) 1.3 Thou/mm3 (1.0-4.8); Lymphocytes % (Auto) 24 % (10-50); Mean Corpuscular HGB Conc 32.5 g/dl (31.0-37.0); Mean Corpuscular Hemoglobin 27.4 pg (25.0-35.0); Mean Corpuscular Volume 84 fL (80-100); Monocytes # (Auto) 0.6 Thou/mm3 (0.0-0.8); Monocytes % (Auto) 11 % (0-12); Neutrophils # (Auto) 3.3 Thou/mm3 (1.8-7.7); Neutrophils % (Auto) 62 % (37-80); Nucleated Red Blood Cell % 0 /100 WBC (0); Platelet Count 164 Thou/mm3 (140-440); RDW Standard Deviation 42.6 fL (36.4-46.3); Red Blood Count 3.21 Miln/mm3 (4.00-5.20); White Blood Count 5.3 Thou/mm3 (3.6-11.0)
[2024-08-21 06:10] LABS: Hemoglobin 8.8 g/dL (12.0-16.0)
[2024-08-21 06:56] LABS: Alanine Aminotransferase < 7 U/L (10-49); Albumin, Serum 3.9 gm/dL (3.4-4.8); Albumin/Globulin Ratio 1.4 (1.2-2.2); Alkaline Phosphatase 53 U/L (46-116); Anion Gap 10 (7-16); Aspartate Amino Transferase 14 U/L (0-34); BUN/Creatinine Ratio 22 Ratio (12-20); Bilirubin,Total 0.4 mg/dL (0.3-1.2); Blood Urea Nitrogen 58 mg/dL (9-23); Calcium 8.9 mg/dL (8.3-10.6); Carbon Dioxide 24.9 mMol/L (20.0-31.0); Chloride 102 mMol/L (98-107); Creatinine (Component) 2.6 mg/dL (0.6-1.3); Estimated Creatinine Clearance 21.7 mL/min (>60); Globulin 2.8 gm/dL (2.3-3.5); Glucose 108 mg/dL (74-106); Magnesium 2.8 mg/dL (1.6-2.6); Osmolality,Calculated 291 (275-295); Phosphorous 5.9 mg/dL (2.4-5.1); Sodium 137 mMol/L (136-145); Total Protein 6.7 gm/dL (5.7-8.2); eGFR 19 See Note
[2024-08-21 08:00] VITALS: BP 126/66; PULSE 58; PULSE 72; RESP 14; TEMP 36.8; O2SAT 99
[2024-08-21 08:50] VITALS: BP 126/66; PULSE 72
[2024-08-21] MEDS: carVEDILOL 12.5 MG TABLET 25 MG PO (08:50)
[2024-08-21 08:51] VITALS: BP 126/66; PULSE 72
[2024-08-21] MEDS: SENNA TABLET 1 TAB PO (08:51)
[2024-08-21] MEDS: amLODIPine BESYLATE 5 MG TABLET 10 MG PO (08:51)
--- NOTE | 2024-08-21 13:28 | ESDS_ITS ---
<Statement entered by Reena Umana DO - 08/22/24 12:10> I, Reena Umana DO, attest that I was physically present for the harper portions of the service and evaluated the patient with the resident and I reviewed and discussed the case with the resident and agree with the resident's findings and plans of care as documented above <Statement entered by Treasure Gaspar MD - 08/22/24 10:06> Patient was seen and examined by me personally. I have reviewed the below documentation by the team resident and agree with its findings with any exceptions as below. Discharge plan was discussed with the attending, Dr. Umana. Patient reported no further shortness of breath and is feeling well. Creatinine slightly improved after weaning Lasix down. Patient was determined stable for discharge home with instructions to be compliant with her home medication, no changes at this time to regimen. Treasure Gaspar, PGY-2 Planned Discharge Date 08/21/24 DS: Providers Provider Date of admission: 08/18/24 11:35 Primary care physician: Karishma Mitchell MD Admitting Provider: Tejinder Diaz MD Attending Provider on Admission: Reena Umana DO Attending Provider on DC: Rony Parrish MD Discharging Provider: Rony Parrish MD DS: Diagnosis Problem List Completed Was Problem List Reviewed/Reconciled?: Yes Hospital Course Hospital Course Hospital course: 69-year-old female with past medical history of HFpEF (50-55%), CKD stage III, hypertension, DM 2, CVA in 2020 without residual deficits and hyperlipidemia presented to the ED on 08/18 with shortness of breath which has been ongoing for about 3 days. In the ED, patient presented hypertensive with systolic 185/91, regular heart rate, respiratory rate normal and afebrile satting 92 on room air. Pertinent findings included troponin of 0.021, BNP of 3 and 64 but EKG was normal sinus rhythm and chest x-ray showed mild enlargement of the cardiac contour with prominent vascular congestion and possible superimposed right perihilar pneumonia. Patient was admitted for CHF exacerbation and started on IV diuretics; there was low suspicion for pneumonia at this time because the patient's WBC count was within normal limits and the patient did not have any fever or signs of active infection. Throughout the admission, patient remained on room air and shortness of breath symptomatically improved; moreover, IV Lasix dose was increased on the second day to twice daily which did cause creatinine to increase. As a result, IV diuretics were weaned down to once a day which resulted in improving kidney function. Patient we discharged from the hospital with the following strict instructions. Please continue to take all your home medications as prescribed Follow-up with your PCP within 1-2 weeks - ask if you could benefit from PCSK-9 inhibitor medications for high cholesterol in the setting of Type 2 Diabetes Mellitus If your symptoms worsen or if you develop new fever/chills, chest pain, shortness of breath or dizziness - please come back to the ED immediately Hospital Diagnosis: #Acute on chronic congestive heart failure exacerbation #HFpEF #Possible superimposed community-acquired pneumonia #Hypertensive urgency #Hypertension #CKD stage IV #MIRIAM on CKD #Hrs-ywlcyba-hboctyslr type 2 diabetes #Hyperlipidemia #Anemia of chronic disease #History of CVA in 2019 Rony Parrish, PGY-1 Status at Discharge Overall status at discharge: patient is progressing back to baseline Time Spent with Patient Time attestation: Total time spent providing and/or coordinating discharge services: 45 minutes Time spent: Greater than 30 minutes Exam Vital Signs Temp Pulse Resp BP Pulse Ox O2 Del Method 98.3 F 72 14 126/66 99 Room Air 08/21/24 08:00 08/21/24 08:51 08/21/24 08:00 08/21/24 08:51 08/21/24 08:00 08/21/24 08:00 Narrative Exam Physical Exam: GENERAL: Awake, answering questions appropriately in Nepali, appears stated age HEENT: NC/AT. Moist mucosa. PERRLA/EOMI. CARDIO: Heart RRR, no obvious murmurs, no JVD. PULM: No coughing or visible SOB. Crackles auscultated on right lower lung field, no wheeze/rales/rhonchi GI: Abdomen soft, NT, mildly distended with ballotable fluid, no caput medusae noted, no guarding, no rebound tenderness and borborygmi apparent SKIN/MSK/EXT: Nonpitting edema noted on bilateral lower extremities up to estrada. No wounds/discoloration/rashes/amputations noted. +Pedal pulses present B/L. NEURO: Oriented x 3, Moves extremities x4, no focal neurologic deficits noted Discharge Plan Plan Patient Disposition: HOME (Self Care) Patient condition on transfer: Stable Care Plan Goals: Please continue to take all your home medications as prescribed Follow-up with your PCP within 1-2 weeks - ask if you could benefit from PCSK-9 inhibitor medications for high cholesterol in the setting of Type 2 Diabetes Mellitus If your symptoms worsen or if you develop new fever/chills, chest pain, shortness of breath or dizziness - please come back to the ED immediately Prescriptions/Referrals Prescriptions/Med Rec: Continued clopidogrel 75 mg Tablet 75 mg PO DAILY ezetimibe 10 mg Tablet 10 mg PO QPM hydralazine 50 mg Tablet 100 mg PO TID pregabalin 75 mg Capsule 75 mg PO QPM Ozempic auto-injector 0.5 mg subcut QWEEK bumetanide 2 mg tablet 2 mg PO QDAY Patient Comments: TAKE 1 TABLET BY MOUTH EVERY DAY atorvastatin 80 mg tablet 80 mg PO QDAY Patient Comments: TAKE 1 TABLET BY MOUTH EVERY DAY Rx Instructions: takes in the afternoon carvedilol 25 mg tablet 25 mg PO BID Patient Comments: TAKE 1 TABLET BY MOUTH TWICE A DA isosorbide mononitrate 30 mg tablet extended release 24 hr 60 mg PO DAILY furosemide [Lasix] 40 mg tablet 40 mg PO Q OTHER DAY 30 Days Qty: 15 1RF Referrals: Karishma Mitchell MD [Primary Care Provider] - Patient/Caregiver Discharge Instructions Education Materials: Coping with Heart Failure, Eating Heart-Healthy Foods Print Language: Nepali Stand Alone Forms: [facility] Award Info., Patient Portal Info Letter Discharge Order Discharge Orders: Discharge (Routine); Ordered 08/21/24 Ordered By: Reena Umana Quality Discharge Quality Measures VTE prophylaxis
== END 2024-08-21 11:45 | disposition home or self-care (01) | DRG 291 ==
LOC: SERX 10:08 → SERHOLD 11:44 → S3NX 23:19
PROVIDERS: Nurse Practitioner Family; Student in an Organized Health Care Education/Training Program; Admitting Provider Student in an Organized Health Care Education/Training Program; Emergency Provider Emergency Medicine; PCP Family Medicine; Visit Provider Internal Medicine
DX: I13.0 Hypertensive heart and chronic kidney disease with heart failure and stage 1 through stage 4 chronic kidney disease, or unspecified chronic kidney disease (principal); I50.33 Acute on chronic diastolic (congestive) heart failure; J18.9 Pneumonia, unspecified organism; N18.4 Chronic kidney disease, stage 4 (severe); N17.9 Acute kidney failure, unspecified; E11.22 Type 2 diabetes mellitus with diabetic chronic kidney disease; E78.5 Hyperlipidemia, unspecified; T21.21XA Burn of second degree of chest wall, initial encounter; D63.1 Anemia in chronic kidney disease; I16.0 Hypertensive urgency; Z86.73 Personal history of transient ischemic attack (TIA), and cerebral infarction without residual deficits; Z79.899 Other long term (current) drug therapy; X11.8XXA Contact with other hot tap-water, initial encounter; Z79.4 Long term (current) use of insulin; Z88.8 Allergy status to other drugs, medicaments and biological substances
CPT/HCPCS: 36415; 71046; 80053; 80061; 81001; 82728; 83036; 83540; 83550; 83735; 83880; 84100; 84484; 85025; 85046; 85610; 85730; 93005; 93225; 94640; 96365; 96366; 96375; 99285; A9270; J0360; J0456; J0696; J1940; J3475; J3490; J7050

== ENCOUNTER → 2025-04-02 | Outpatient (CLI) | payer MEDICARE, SELFPAY ==
--- NOTE | 2025-04-02 13:41 | XR_ITS ---
Examination: Abdomen sonogram, Limited Date and time of exam: April 02, 2025, 1356 hours INDICATIONS: Abdominal distention beginning 3 weeks ago, CHF renal failure stage IV Technique: Real-time das scale transabdominal sonographic images of the upper abdomen obtained. Findings: No ascites IMPRESSION: No ascites
== END | disposition home or self-care (01) ==
PROVIDERS: PCP Family Medicine; Referring Provider Internal Medicine; Visit Provider Internal Medicine
DX: I50.32 Chronic diastolic (congestive) heart failure (principal)
CPT/HCPCS: 76705